=== PATIENT | female | born 2000 | race Caucasian/White ===

== ENCOUNTER 2020-07-31 21:00 | Emergency (ER) | payer MEDICAID ==
--- NOTE | 2020-07-31 21:06 | EDM.PDOC ---
ED HPI GENERAL MEDICAL PROBLEM - General Chief Complaint: Back Pain or Injury Stated Complaint: BACK PAIN Time Seen by Provider: 07/31/20 21:02 Source of Information: Reports: Patient History Limitations: Reports: No Limitations - History of Present Illness INITIAL COMMENTS - FREE TEXT/NARRATIVE: HISTORY AND PHYSICAL: History of present illness: Patient is a 20-year-old female who presents to the emergency room with complaints of right low back pain. This pain started approximately 1 week ago which is progressively gotten worse. She states she has increased anxiety and was concerned to come to the hospital due to this. She was told by her aunt that she could have a bladder infection although she does not have any frequency, dysuria or hematuria. She also denies any concern for or STIs. She reports that the pain is constant and does not radiate. She denies any injury, trauma or falls. She is fully ambulatory into the emergency room and is able to move freely without any difficulty or deficits. She denies any numbness, tingling, saddle paresthesia or weakness of her distal extremities. She denies any urinary or fecal incontinence. Patient denies any fever, chills, headache, change in vision, syncope or near syncope. Denies any chest pain, shortness of breath or cough. Denies any abdominal pain, nausea, vomiting, diarrhea, or constipation. Has not noted any blood in urine or stool. Patient has been eating and drinking appropriately. Review of systems: As per history of present illness and below otherwise all systems reviewed and negative. Past medical history: As per history of present illness and as reviewed below otherwise noncontributory. Surgical history: As per history of present illness and as reviewed below otherwise non contributory. Social history: See social history for further information Family history: As per history of present illness and as reviewed below otherwise noncontributory. Physical exam: General: Well developed and well nourished. Alert and orientated x 3. Nontoxic in appearance and in no acute distress. Vital signs are stable and have been reviewed by me. Nursing notes were reviewed. HEENT: Atraumatic, normocephalic, pupils equal and reactive bilaterally, negative for conjunctival pallor or scleral icterus, mucous membranes moist, TMs normal bilaterally, throat clear, neck supple, nontender, trachea midline. No drooling or trismus noted. No meningeal signs. No hot potato voice noted. Lungs: Clear to auscultation bilaterally. No wheezes, rales, or rhonchi. Chest nontender. Normal work of breathing, no accessory muscles used. Heart: S1S2, regular rate and rhythm without overt murmur, gallops, or rubs. No JVD. No peripheral edema Abdomen: Soft, nondistended, nontender. Normoactive bowel sounds. Negative for masses or costovertebral tenderness. Pelvis: Stable nontender. C-spine/Back: No pinpoint vertebral tenderness upon palpation. No crepitus, step-offs or obvious deformities. Patient is ambulatory into the emergency room without difficulty or deficit. Muscular tenderness to the right lower lumbar region. No bony tenderness. Able to rock back on heels and walk on toes. Denies any urinary or fecal incontinence. Denies any numbness, tingling or saddle paresthesia. No concerns of serious infection, fracture or cord compression, or cauda equina syndrome. Deep tendon reflexes brisk bilaterally. Skin: Intact, warm, dry. No lesions or rashes noted. Hematologic: No petechiae or purpra. Mucosa appropriate color and normal nail bed color and refill. Extremities: Atraumatic, moves all extremities per self without difficulty or deficits, negative for cords or calf pain. Neurovascular unremarkable. Neuro: Awake, alert, oriented. Cranial nerves II through XII unremarkable. Cerebellum unremarkable. Motor and sensory unremarkable throughout. Exam nonfocal. Psychiatric: Mood and affect are appropriate. Normal thought process. Answering questions appropriately. Notes: *This patient was seen and evaluated during the 2019 SARS-CoV-2 novel coronavirus pandemic period. Community viral transmission is ongoing at time of this encounter and the emergency department is operating under pandemic response procedures. After my physical exam it appears that she has more muscular involvement and does not require any imaging at this time. Urinalysis is negative. Negative . We will treat this as a muscular strain with Flexeril and diclofenac. Patient states she is up here from [place], visiting for an undetermined amount of time. She was concerned that [place] does not except [place] Medicaid, I did give her information of financial assistance that she could obtain at the administrative assistant front desk. Encouraged her to follow-up with primary care here or back in [place] if her pain continues because further imaging/diagnostics may be warranted at that time. I have talked with the patient about today's findings, in addition to providing specific details for plan of care. Reassessment at the time of disposition demonstrates that the patient is in no acute distress. The patient is stable for discharge, counseling was provided and we discussed in great detail signs and symptoms that would prompt them to return to the Emergency Department. Medication, follow up and supportive care measures were reviewed and discussed. Voices understanding and is agreeable to plan of care. Denies any further questions or concerns at this time. Diagnostics: UA, hCG you Therapeutics: Flexeril, diclofenac Prescription: Flexeril Impression: Muscular back strain Plan: 1. The medication you received today does cause drowsiness, so do not drive for the remaining day 2. When resting please lay on a flat firm surface. Limit your immobility to prevent muscle stiffness. Get up to ambulate/move around/gentle stretching multiple times throughout the day. May alternate heat and ice to the painful areas 3. Tylenol and Ibuprofen as needed for back pain. Flexeril as a muscle relaxant, this medication may cause drowsiness a do not take it will driving her needing to be functioning outside of the house. Please take Ibuprofen with food routinely as this will help with the back pain. 4. Please follow-up with your primary care provider as we discussed. If your symptoms should worsen, new symptoms develop or any of the signs and symptoms we discussed should arise please return to the emergency room or call 911 (if needed). Definitive disposition and diagnosis as appropriate pending reevaluation and review of above. lower back Pain Score (Numeric/FACES): 5 - Related Data Allergies Allergy/AdvReac Type Severity Reaction Status Date / Time acetaminophen Allergy Itching Verified 07/31/20 21:22 [From Tylenol-Codeine #3] codeine Allergy Itching Verified 07/31/20 21:22 [From Tylenol-Codeine #3] Home Meds: Home Meds . [No Known Home Meds] 07/31/20 [History] ED ROS GENERAL - Review of Systems Review Of Systems: Comprehensive ROS is negative, except as noted in HPI. ED EXAM,LOWER BACK PAIN/INJURY - Physical Exam Exam: See Below (See dictation) Course - Vital Signs Last Recorded V/S: Last Vital Signs Temp 96.2 F L 07/31/20 21:18 Pulse 70 07/31/20 21:18 Resp 16 07/31/20 21:18 BP 146/85 H 07/31/20 21:18 Pulse Ox 99 07/31/20 21:18 - Orders/Labs/Meds Labs: Laboratory Tests 07/31/20 07/31/20 Range/Units 21:20 21:20 Urine Color YELLOW Urine Appearance CLEAR Urine pH 6.0 (5.0-8.0) Ur Specific [place] 1.025 (1.001-1.035) Urine Protein NEGATIVE (NEGATIVE) mg/dL Urine Glucose (UA) NEGATIVE (NEGATIVE) mg/dL Urine Ketones NEGATIVE (NEGATIVE) mg/dL Urine Occult Blood NEGATIVE (NEGATIVE) Urine Nitrite NEGATIVE (NEGATIVE) Urine Bilirubin NEGATIVE (NEGATIVE) Urine Urobilinogen 0.2 (<2.0) EU/dL Ur Leukocyte Esterase NEGATIVE (NEGATIVE) Urine HCG, Qual NEGATIVE (NEGATIVE) Meds: Medications Discontinued Medications Generic Name Dose Route Start Last Admin Trade Name Freq PRN Reason Stop Dose Admin Cyclobenzaprine HCl 10 mg 07/31/20 21:30 Flexeril PO 07/31/20 21:31 ONETIME ONE Diclofenac Sodium 75 mg 07/31/20 21:30 Voltaren PO 07/31/20 21:31 ONETIME ONE Departure - Departure Time of Disposition: 21:39 Disposition: Home, Self-Care 01 Clinical Impression: Muscle strain - Discharge Information Instructions: Muscle Strain, [id number] Referrals: PCP,None [Primary Care Provider] - Forms: ED Department Discharge Additional Instructions: The following information is given to patients seen in the emergency department who are being discharged to home. This information is to outline your options for follow-up care. We provide all patients seen in our emergency department with a follow-up referral. The need for follow-up, as well as the timing and circumstances, are variable depending upon the specifics of your emergency department visit. If you don't have a primary care physician on staff, we will provide you with a referral. We always advise you to contact your personal physician following an emergency department visit to inform them of the circumstance of the visit and for follow-up with them and/or the need for any referrals to a consulting specialist. The emergency department will also refer you to a specialist when appropriate. This referral assures that you have the opportunity for follow-up care with a specialist. All of these measure are taken in an effort to provide you with optimal care, which includes your follow-up. Under all circumstances we always encourage you to contact your private physician who remains a resource for coordinating your care. When calling for follow-up care, please make the office aware that this follow-up is from your recent emergency room visit. If for any reason you are refused follow-up, please contact the [facility] Emergency Department at and asked to speak to the emergency department charge nurse. [facility] [address] [place] [address] [id number] [facility] [address] [place] [id number] Thank you for choosing the [facility] emergency department in [place] for your medical needs today. It was a pleasure caring for you. Today you were seen in the emergency department for back pain. 1. The medication you received today does cause drowsiness, so do not drive for the remaining day 2. When resting please lay on a flat firm surface. Limit your immobility to prevent muscle stiffness. Get up to ambulate/move around/gentle stretching multiple times throughout the day. May alternate heat and ice to the painful areas 3. Tylenol and Ibuprofen as needed for back pain. Flexeril as a muscle relaxant, this medication may cause drowsiness a do not take it will driving her needing to be functioning outside of the house. Please take Ibuprofen with food routinely as this will help with the back pain. 4. Please follow-up with your primary care provider as we discussed. If your symptoms should worsen, new symptoms develop or any of the signs and symptoms we discussed should arise please return to the emergency room or call 911 (if ne eded). Sepsis Event Note (ED) - Focused Exam Vital Signs: Vital Signs Temp Pulse Resp BP Pulse Ox 07/31/20 21:18 96.2 F L 70 16 146/85 H 99
[2020-07-31] MEDS ORDERED: Diclofenac Sodium 75 MG Tab.EC PO ONE (21:30)
[2020-07-31] MEDS ORDERED: Cyclobenzaprine 10 MG Tab PO ONE (21:30)
== END 2020-07-31 21:54 | disposition home or self-care (01) ==
LOC: MW.ED 21:00
DX: S39.012A Strain of muscle, fascia and tendon of lower back, initial encounter (principal); Z88.6 Allergy status to analgesic agent; Z88.5 Allergy status to narcotic agent; X58.XXXA Exposure to other specified factors, initial encounter
CPT/HCPCS: 81003; 81025; 99283; A9270

== ENCOUNTER 2020-08-18 20:20 | Emergency (ER) | payer MEDICAID ==
--- NOTE | 2020-08-18 21:06 | EDM.PDOC ---
<Magdaleno Gallagher - Last Filed: 08/18/20 22:22> ED HPI GENERAL MEDICAL PROBLEM - General Chief Complaint: Respiratory Problem Stated Complaint: SOB Time Seen by Provider: 08/18/20 21:00 - Related Data Allergies Allergy/AdvReac Type Severity Reaction Status Date / Time acetaminophen Allergy Itching Verified 08/18/20 21:07 [From Tylenol-Codeine #3] codeine Allergy Itching Verified 08/18/20 21:07 [From Tylenol-Codeine #3] Home Meds: Home Meds Ondansetron [Zofran ODT] 4 mg PO Q6H PRN 3 Days #12 tab.dis 08/18/20 [Rx] ED ROS GENERAL - Review of Systems Review Of Systems: See Below ED EXAM, GENERAL - Physical Exam Exam: See Below Departure - Departure Time of Disposition: 22:23 Disposition: Home, Self-Care 01 Condition: Good Clinical Impression: Viral syndrome - Discharge Information *PRESCRIPTION DRUG MONITORING PROGRAM REVIEWED*: Not Applicable *COPY OF PRESCRIPTION DRUG MONITORING REPORT IN PATIENT LICHA: Not Applicable Prescriptions: Ondansetron [Zofran ODT] 4 mg PO Q6H PRN 3 Days #12 tab.dis PRN Reason: Nausea Instructions: Viral Illness, Adult Referrals: [facility] [Outside] Forms: ED Department Discharge Additional Instructions: Your chest x-ray today was normal it did not show bacterial pneumonia. Your blood work was also normal. Your coronavirus and flu swabs were negative tonight. Indicating that you do not have coronavirus of the flu. It is possible that you were too early in your course for your coronavirus test to be positive. However I think it is more likely that you have a different upper respiratory viral infection. I have sent a prescription for Zofran to the pharmacy that you can cook pickled meat tomorrow this will help with your nausea. If you develop severe abdominal pain vomiting despite the Zofran or any other new or worsening symptoms that concern you please follow-up with your doctor or return to the ER. If you are still feeling very poorly 5 to 7 days from now it would be prudent to get retested for coronavirus. If you do not have a primary care provider you can follow-up with the [facility]. The following information is given to patients seen in the emergency department who are being discharged to home. This information is to outline your options for follow-up care. We provide all patients seen in our emergency department with a follow-up referral. The need for follow-up, as well as the timing and circumstances, are variable depending upon the specifics of your emergency department visit. If you don't have a primary care physician on staff, we will provide you with a referral. We always advise you to contact your personal physician following an emergency department visit to inform them of the circumstance of the visit and for follow-up with them and/or the need for any referrals to a consulting specialist. The emergency department will also refer you to a specialist when appropriate. This referral assures that you have the opportunity for follow-up care with a specialist. All of these measure are taken in an effort to provide you with optimal care, which includes your follow-up. Under all circumstances we always encourage you to contact your private physician who remains a resource for coordinating your care. When calling for follow-up care, please make the office aware that this follow-up is from your recent emergency room visit. If for any reason you are refused follow-up, please contact the [facility] Emergency Department at and asked to speak to the emergency department charge nurse. - Assessment/Plan Plan: I received signout on this patient from the nurse practitioner at [id number]. Her labs have not returned they demonstrate an unremarkable CMP and a normal white blood cell count. Her Covid and flu swabs are negative. Chest x-ray is clear. It is possible that she is simply too early in her course for the Covid to be positive. However, I think it is more likely that she has a non-Covid viral syndrome. Patient is nauseous with p.o. intake but is not vomiting. We discu ssed that if it is a far-[id number] viral syndrome she should start to feel better in the next 4 to 5 days. However, if her breathing worsens or she feels worse 5 to 7 days from now that she should be retested. Patient expressed understanding of all of this. <Issa Martin E - Last Filed: 08/19/20 10:32> ED HPI GENERAL MEDICAL PROBLEM - General Source of Information: Reports: Patient History Limitations: Reports: No Limitations - History of Present Illness INITIAL COMMENTS - FREE TEXT/NARRATIVE: HISTORY AND PHYSICAL: History of present illness: Patient is a 20-year-old female who presents to the emergency room with a 2-day history of headache, generalized body aches, dry cough and sensation of shortness of breath. Patient states she has not eaten or drank much as anytime she has consumed food or water she becomes nauseated. Patient denies any fever, chills, headache, change in vision, syncope or near syncope. Denies any chest pain, back pain, or hemoptysis. Denies any abdominal pain, vomiting, diarrhea, constipation or dysuria. Has not noted any blood in urine or stool. She has no concern for . Patient has been eating and drinking appropriately. No personal history of influenza or COVID-19 this season. Has not been around anyone who's been ill. No recent travel. Review of systems: As per history of present illness and below otherwise all systems reviewed and negative. Past medical history: As per history of present illness and as reviewed below otherwise noncontributory. Surgical history: As per history of present illness and as reviewed below otherwise noncontributory. Social history: See social history for further information Family history: As per history of present illness and as reviewed below otherwise noncontributory. Physical exam: General: Well developed and well nourished. Alert and orientated x 3. Nontoxic in appearance and in no acute distress. Vital signs are stable and have been reviewed by me. Nursing notes were reviewed. HEENT: Atraumatic, normocephalic, pupils equal and reactive bilaterally, negative for conjunctival pallor or scleral icterus, mucous membranes moist, TMs normal bilaterally, throat clear, neck supple, nontender, trachea midline. No drooling or trismus noted. No meningeal signs. No hot potato voice noted. Lungs: Clear to auscultation bilaterally. No wheezes, rales, or rhonchi. Chest nontender. Normal work of breathing, no accessory muscles used. Heart: S1S2, tachycardia, regular rhythm without overt murmur, gallops, or rubs. No JVD. No peripheral edema Abdomen: Soft, nondistended, nontender. Normoactive bowel sounds. Negative for masses or costovertebral tenderness. Skin: Intact, warm, dry. No lesions or rashes noted. Hematologic: No petechiae or purpra. Mucosa appropriate color and normal nail bed color and refill. Extremities: Atraumatic, moves all extremities per self without difficulty or deficits, negative for cords or calf pain. Neurovascular unremarkable. Neuro: Awake, alert, oriented. Cranial nerves II through XII unremarkable. Cerebellum unremarkable. Motor and sensory unremarkable throughout. Exam nonfocal. Psychiatric: Mood and affect are appropriate. Normal thought process. Answering questions appropriately. Notes: *This patient was seen and evaluated during the 2019 SARS-CoV-2 novel coronavirus pandemic period. Community viral transmission is ongoing at time of this encounter and the emergency department is operating under pandemic response procedures. Dr Gallagher will assume care of patient at 2200. Awaiting diagnostics. Patient is stable and will likely be discharged to home. Elliott will disposition ubaldo ropriately. Diagnostics: CBC, CMP, UA, CXR, COVID/Influenza Therapeutics: IV fluids, Zofran, Toradol Impression: Viral Syndrome Definitive disposition and diagnosis as appropriate pending reevaluation and review of above. head Pain Score (Numeric/FACES): 8 Past Medical History Psychiatric History: Reports: Anxiety - Infectious Disease History Infectious Disease History: Reports: None - Past Surgical History HEENT Surgical History: Reports: Tonsillectomy GI Surgical History: Reports: Appendectomy Social & Family History - Family History Family Medical History: No Pertinent Family History - Caffeine Use Caffeine Use: Reports: None Course - Vital Signs Last Recorded V/S: Last Vital Signs Temp 98.7 F 08/18/20 21:04 Pulse 100 08/18/20 23:12 Resp 20 08/18/20 23:12 BP 151/87 H 08/18/20 23:12 Pulse Ox 94 L 08/18/20 23:12 - Orders/Labs/Meds Labs: Laboratory Tests 08/18/20 08/18/20 08/18/20 Range/Units 21:09 21:22 21:22 WBC 10.50 (4.0-11.0) K/uL RBC 5.39 (4.30-5.90) M/uL Hgb 13.7 (12.0-16.0) g/dL Hct 43.5 (36.0-46.0) % MCV 80.7 (80.0-98.0) fL MCH 25.4 L (27.0-32.0) pg MCHC 31.5 (31.0-37.0) g/dL RDW Std Deviation 43.8 (28.0-62.0) fl RDW Coeff of Maura 15 (11.0-15.0) % Plt Count 380 (150-400) K/uL MPV 10.30 (7.40-12.00) fL Neut % (Auto) 68.7 (48.0-80.0) % Lymph % (Auto) 21.8 (16.0-40.0) % [place] % (Auto) 7.8 (0.0-15.0) % Eos % (Auto) 1.2 (0.0-7.0) % Baso % (Auto) 0.5 (0.0-1.5) % Neut # (Auto) 7.2 H (1.4-5.7) K/uL Lymph # (Auto) 2.3 (0.6-2.4) K/uL [place] # (Auto) 0.8 (0.0-0.8) K/uL Eos # (Auto) 0.1 (0.0-0.7) K/uL Baso # (Auto) 0.1 (0.0-0.1) K/uL Nucleated RBC % 0.0 /100WBC Nucleated RBCs # 0 K/uL Sodium 140 (136-145) mmol/L Potassium 3.7 (3.5-5.1) mmol/L Chloride 103 (98-107) mmol/L Carbon Dioxide 25.2 (21.0-32.0) mmol/L BUN 11 (7.0-18.0) mg/dL Creatinine 1.0 (0.6-1.0) mg/dL Est Cr Clr Drug Dosing 89.77 mL/min Estimated GFR (MDRD) > 60.0 ml/min Glucose 115 H (74-106) mg/dL Calcium 8.9 (8.5-10.1) mg/dL Total Bilirubin 0.3 (0.2-1.0) mg/dL AST 12 L (15-37) IU/L ALT 29 (14-63) IU/L Alkaline Phosphatase 138 H (46-116) U/L Total Protein 7.9 (6.4-8.2) g/dL Albumin 3.6 (3.4-5.0) g/dL Globulin 4.3 H (2.6-4.0) g/dL Albumin/Globulin Ratio 0.8 L (0.9-1.6) Influenza Type A RNA NEGATIVE (NEGATIVE) Influenza Type B RNA NEGATIVE (NEGATIVE) SARS-CoV-2 RNA (ODALYS) NEGATIVE (NEGATIVE) Meds: Medications Discontinued Medications Generic Name Dose Route Start Last Admin Trade Name Freq PRN Reason Stop Dose Admin Sodium Chloride 1,000 mls @ 999 mls/hr 08/18/20 21:12 08/18/20 21:47 Normal Saline IV 08/18/20 22:12 999 mls/hr STAT ONE Administration Ketorolac Tromethamine 30 mg 08/18/20 21:12 08/18/20 21:47 Toradol IVPUSH 08/18/20 21:13 30 mg ONETIME ONE Administration Ondansetron HCl 4 mg 08/18/20 21:12 08/18/20 21:47 Zofran IVPUSH 08/18/20 21:13 4 mg ONETIME ONE Administration Sepsis Event Note (ED) - Focused Exam Vital Signs: Vital Signs Pulse Resp BP Pulse Ox 08/18/20 23:12 100 20 151/87 H 94 L
[2020-08-18] MEDS ORDERED: Ondansetron 4 MG/2 ML SDV IVPUSH ONE (21:12)
[2020-08-18] MEDS ORDERED: Ketorolac 30 MG/ML SDV IVPUSH ONE (21:12)
[2020-08-18] MEDS ORDERED: Sodium Chloride 0.9% 1,000 ML IV ONE (21:12)
[2020-08-18 21:49] LABS: BLOOD UREA NITROGEN,BUN 11 mg/dL (7.0-18.0); CARBON DIOXIDE,CO2 25.2 mmol/L (21.0-32.0); CHLORIDE,CL 103 mmol/L (98-107); GLUCOSE RANDOM 115 mg/dL (74-106); POTASSIUM,K 3.7 mmol/L (3.5-5.1); SODIUM,NA 140 mmol/L (136-145)
[2020-08-18 22:05] LABS: CORONAVIRUS COVID-19 NAA NEGATIVE (NEGATIVE); INFLUENZA A NAA NEGATIVE (NEGATIVE); INFLUENZA B NAA NEGATIVE (NEGATIVE)
--- NOTE | 2020-08-18 22:05 | CR ---
Indication: Shortness of breath Technique: Chest 1 view Comparison: None Findings/Impression: Cardiovascular and mediastinum: Heart size and vasculature are normal in caliber and appearance. Lungs and pleural space: Low lung volumes without pleural effusion or pneumothorax. No focal consolidation. Bones and soft tissues: No acute findings. Dictated by Jericho Costa MD @ Aug 18 2020 10:04PM Signed by Dr. Jericho Costa @ Aug 18 2020 10:05PM
== END 2020-08-18 23:12 | disposition home or self-care (01) ==
LOC: MW.ED 20:20
DX: B34.9 Viral infection, unspecified (principal); Z88.5 Allergy status to narcotic agent; Z20.822 Contact with and (suspected) exposure to COVID-19
CPT/HCPCS: 0240U; 36415; 71045; 80053; 85025; 96374; 96375; 99285; J1885; J2405; J7030; 99283

== ENCOUNTER 2020-08-23 18:43 | Observation (INO) | payer MEDICAID ==
[2020-08-23] MEDS ORDERED: Sodium Chloride 0.9% 1,000 ML IV SCH (19:15)
--- NOTE | 2020-08-23 19:59 | PCM.EKG ---
#1 Interpretation EKG Date: 08/23/20 Time: 19:35 Rhythm: NSR Rate (Beats/Min): 130 Parker: Normal P-Wave: Present QRS: Normal ST-T: Normal QT: Normal Comparison: NA - No Prior EKG (Sinus Tachycardia)
[2020-08-23 20:06] LABS: BLOOD UREA NITROGEN,BUN 7 mg/dL (7.0-18.0); CARBON DIOXIDE,CO2 22.7 mmol/L (21.0-32.0); CHLORIDE,CL 102 mmol/L (98-107); GLUCOSE RANDOM 95 mg/dL (74-106); LIPASE 77 U/L (73-393); SODIUM,NA 139 mmol/L (136-145)
[2020-08-23 20:15] LABS: CORONAVIRUS COVID-19 NAA NEGATIVE (NEGATIVE); INFLUENZA A NAA NEGATIVE (NEGATIVE); INFLUENZA B NAA NEGATIVE (NEGATIVE)
[2020-08-23] MEDS ORDERED: Ondansetron 4 MG/2 ML SDV IVPUSH ONE (21:11)
[2020-08-23] MEDS ORDERED: Ketorolac 15 MG/ML SDV IM ONE (21:11)
[2020-08-23] MEDS ORDERED: Ketorolac 15 MG/ML SDV IVPUSH STA (21:13)
[2020-08-23] MEDS ORDERED: Lactated Ringers 1,000 ML IV SCH (21:15)
--- NOTE | 2020-08-23 22:08 | CR ---
Indication: Shortness of breath Technique: Chest 1 view Comparison: August 18, 2020 Findings/Impression: Cardiovascular and mediastinum: Heart size and vasculature are normal in caliber and appearance. Mediastinum is within normal limits. Lungs and pleural space: Lungs are clear. No sign of infiltrate or mass. No sign of pleural effusion. No pneumothorax. Bones and soft tissues: No significant findings. Dictated by Arlette Keen MD @ Aug 23 2020 10:04PM Signed by Dr. Arlette Keen @ Aug 23 2020 10:06PM
[2020-08-23] MEDS ORDERED: Iopamidol 755 MG/ML 500 ML Multipack Bottle IVPUSH STA (23:39)
--- NOTE | 2020-08-23 23:58 | CT ---
INDICATION: Feeling ill, shortness of breath and tachycardia. TECHNIQUE: CT chest PE was acquired with 100 cc Isovue 370 intravenous contrast. COMPARISON: Chest x-ray 08/23/2020 FINDINGS: Heart and vasculature: Sensitivity is mildly reduced secondary to respiratory motion on the exam. Considering this, no definite filling defects within the pulmonary artery. No pericardial effusion. Thoracic aorta normal in contour. Lungs and pleural: No pleural effusion or pneumothorax. Some respiratory motion, however there is a diffuse ground-glass process involving both lungs, especially at the lung bases. Lymph nodes/mediastinum: Right hilar lymph nodes measure up to 14 millimeters in short axis. Other subcentimeter mediastinal lymph nodes. Chest wall: No masses. Upper abdomen: Normal. Bones: Unremarkable for age. IMPRESSION: 1. Mildly limited examination secondary to respiratory motion without definite evidence of pulmonary embolus. 2. Diffuse ground-glass process involving both lungs, greatest at the lung bases. Differential diagnosis includes a pneumonitis or viral pneumonia. Please note that all CT scans at this facility use dose modulation, iterative reconstruction, and/or weight-based dosing when appropriate to reduce radiation dose to as low as reasonably achievable. Dictated by Jericho Costa MD @ Aug 23 2020 11:48PM Signed by Dr. Jericho Costa @ Aug 23 2020 11:57PM
[2020-08-24] MEDS ORDERED: Enoxaparin 40 MG/0.4 ML Syringe SUBCUT SCH (01:38)
[2020-08-24] MEDS ORDERED: Ketorolac 30 MG/ML SDV IVPUSH PRN (01:39)
[2020-08-24] MEDS ORDERED: Ondansetron 4 MG/2 ML SDV IVPUSH PRN (01:39)
[2020-08-24] MEDS: Albuterol/Ipratropium 3.0-0.5 MG/3 ML Neb Soln NEB PRN (02:05)
[2020-08-24] MEDS: Lactated Ringers 1,000 ML IV SCH ×3 (02:09→19:48)
[2020-08-24 05:55] LABS: BLOOD UREA NITROGEN,BUN 8 mg/dL (7.0-18.0); CARBON DIOXIDE,CO2 25.1 mmol/L (21.0-32.0); CHLORIDE,CL 104 mmol/L (98-107); GLUCOSE RANDOM 102 mg/dL (74-106); POTASSIUM,K 3.7 mmol/L (3.5-5.1); SODIUM,NA 139 mmol/L (136-145)
--- NOTE | 2020-08-24 06:39 | EDM.PDOC ---
ED HPI GENERAL MEDICAL PROBLEM - General Chief Complaint: Respiratory Problem Stated Complaint: SHORTNESS OF BREATH Time Seen by Provider: 08/23/20 18:57 - History of Present Illness INITIAL COMMENTS - FREE TEXT/NARRATIVE: CHIEF COMPLAINT(S): Shortness of breath HISTORY OF PRESENT ILLNESS: This is a 20-year-old woman without any significant past medical history who comes to the emergency department with a chief complaint of shortness of breath. The patient states that she was seen approximately 5 days ago and was diagnosed with a virus. She states that since that time she has been experiencing shortness of breath and chest pain when she takes a deep breath. She feels fine one day then not so well the next day. She denies any cough but states she has some congestions. She states that the chest pain is sharp rated 0/10 currently which is intermittent and exacerbated by taking deep breaths. She denies any hemoptysis. She states that she does have a mild headache which is diffuse in nature not associated with any numbness, tingling, weakness. She denies any light sensitivity or photosensitivity. She states that her roommate is sick. She states that she tried Tylenol at home for everything but it did not work. She denies any other symptoms. REVIEW OF SYSTEMS: Constitutional: Positive for fever Eyes: Denies eye pain Ears, Nose, Mouth, & Throat: Positive for runny nose Cardiovascular: Positive for chest pain Respiratory: Positive for shortness of breath. Denies cough Gastrointestinal: Denies Nausea, vomiting, diarrhea, hematochezia. Genitourinary: Denies hematuria Skin:Denies a rash MSK: Denies joint pain Neurological: Positive for headache. Denies blurred vision, numbness, tingling, weakness Psychiatric: Denies depression PAST MEDICAL HISTORY: As per history of present illness and as reviewed below otherwise noncontributory. SURGICAL HISTORY: As per history of present illness and as reviewed below otherwise noncontributory. SOCIAL HISTORY: As per history of present illness and as reviewed below otherwise noncontributory. FAMILY HISTORY: As per history of present illness and as reviewed below otherwise noncontributory. EXAMINATION OF ORGAN SYSTEMS/BODY AREAS: Constitutional: Blood pressure is 135/65. Heart rate is 125, respiratory rate 18 with an oxygen saturation 98% on room air. Temperature 37.2 General: Overall well-appearing woman who is in no acute distress Psychiatric: Appropriate mood and affect Eyes: No scleral icterus or conjunctival erythema ENMT: Moist mucous membranes. No pharyngeal erythema Cardiovascular: Tachycardic but regular. No rubs. No gallops, murmurs, or rubs. Bilateral upper extremity pulses symmetric and intact. No peripheral edema. No JVD. Respiratory: Lungs clear to auscultation bilaterally.No wheezes, rales, or rhonchi. Gastrointestinal: Soft, non-tender, non-distended.Normoactive bowel sounds Genitourinary: No suprapubic tenderness Musculoskeletal: Normal range of motion. Skin: No lesions or abrasions. Neurological: Alert, GCS 15 Strength and sensation intact. MEDICAL DECISION MAKING AND COURSE IN THE ED WITH INTERPRETATION/REVIEW OF DIAGNOSTIC STUDIES: This is a 20 year old woman without any significant PMH who presentings with viral syndrome who is tachycardic. At this time I do not believe a repeat chest x-ray is indicated. We will obtain repeat Covid swabs and influenza swabs. Will obtain an EKG given the tachycardia. Will observe the patient for improvement. We will provide the patient with 1 L of normal saline given the tachycardia. I will provide the patient with Toradol and Zofran. Laboratory: Covid and influenza are negative. Time: 1934 Twelve-lead EKG interpreted by myself. Sinus tachycardia at a rate of 130 beats per minute. Normal axis. NM interval is 151ms. QRS duration is 78ms. ST segments are [normal without elevations or depressions. No T wave inversions No Q waves present. Hypertrophy not noted. No prior EKG Interpretation: Sinus tachycardia On reevaluation the patient continued to remain tachycardic at 130. EKG revealed sinus tachycardia without any obvious abnormality. Given this we will obtain a further work-up including CBC, D-dimer given the shortness of breath and tachycardia, CMP, troponin, urinalysis and UDS. Will obtain a test. We will provide the patient with additional liter bolus. We will obtain uA and UDS Labs: CBC reveals eleaveted WBC at 13.94 with neutophilic prodom. D dimer is negative. Lactate 1.6. CMP is unremarkable. Lipase negative. TSH and T4 are normal. HCG negative. Urinalysis is negative. UDS negative. Troponin negative. The radiological images were viewed by myself along with reading the report from the radiologist. Chest x-ray does not reveal any acute cardiopulmonary process. On reevaluation, the patient continued to remain tachycardic. Therefore given the shortness of breath and tachycardia even though the D-dimer is negative we will obtain a CT angio to evaluate for PE. The radiological images were viewed by myself along with reading the report from the radiologist. CT angio does not reveal any evidence of pulmonary embolus. There is diffuse groundglass in both lungs at the lung bases. On reevaluation, the patient remained tachycardic at 130. I did have a discussion with her at this time that I would like to admit her for observation given the persistent tachycardia. I discussed her results with her. She was amenable to this plan. Therefore I contacted Dr. Simpson and she accepted the admission. DISPOSITION: The patient was admitted to the hospital in stable condition CONDITION: Fair PROCEDURES: None FINAL IMPRESSION(S)/DIAGNOSES: 1. Acute persistent tachycardia 2. Acute viral pneumonia Alberto Moses M.D. - Related Data Allergies Allergy/AdvReac Type Severity Reaction Status Date / Time codeine Allergy Itching Verified 08/24/20 03:30 [From Tylenol-Codeine #3] Home Meds: Home Meds . [No Known Home Meds] 08/23/20 [History] Past Medical History Psychiatric History: Reports: Anxiety - Infectious Disease History Infectious Disease History: Reports: Shingles - Past Surgical History HEENT Surgical History: Reports: Tonsillectomy GI Surgical History: Reports: Appendectomy Social & Family History - Family History Family Medical History: No Pertinent Family History - Tobacco Use Tobacco Use Status *Q: Never Tobacco User - Caffeine Use Caffeine Use: Reports: Soda - Recreational Drug Use Recreational Drug Use: No ED ROS GENERAL - Review of Systems Review Of Systems: See Below ED EXAM, GENERAL - Physical Exam Exam: See Below Course - Vital Signs Last Recorded V/S: Last Vital Signs Temp 36.8 C 08/24/20 04:00 Pulse 116 H 08/24/20 04:00 Resp 19 08/24/20 04:00 BP 125/62 08/24/20 04:00 Pulse Ox 97 08/24/20 04:00 - Orders/Labs/Meds Orders: Active Orders 24 hr Category Date Time Status Lactated Ringers [Ringers, Lactated] 1,000 ml Med 08/23/20 21:15 Active IV ASDIRECTED Sodium Chloride 0.9% [Normal Saline] 1,000 ml Med 08/23/20 19:15 Active IV ASDIRECTED Medication Orders Albuterol/Ipratropium (Duoneb 3.0-0.5 Mg/3 Ml) 3 ml NEB Q4HRRT PRN PRN Reason: Shortness of Breath Last Admin: 08/24/20 02:05 Dose: 3 ml Documented by: OSMAR Enoxaparin Sodium (Lovenox) 40 mg SUBCUT Q12HR MAGGIE Last Admin: 08/24/20 02:06 Dose: 40 mg Documented by: SOMAR Sodium Chloride (Normal Saline) 1,000 mls @ 999 mls/hr IV ASDIRECTED [facility] Last Admin: 08/23/20 20:01 Dose: 999 mls/hr Documented by: LESLIE Lactated Ringer's (Ringers, Lactated) 1,000 mls @ 999 mls/hr IV ASDIRECTED [facility] Last Admin: 08/23/20 21:23 Dose: 999 mls/hr Documented by: LESLIE Lactated Ringer's (Ringers, Lactated) 1,000 mls @ 125 mls/hr IV ASDIRECTED [facility] Last Admin: 08/24/20 02:09 Dose: 125 mls/hr Documented by: OSMAR Ketorolac Tromethamine (Toradol) 30 mg IVPUSH Q6H PRN PRN Reason: Pain Stop: 08/29/20 01:39 Ondansetron HCl (Zofran) 4 mg IVPUSH Q4H PRN PRN Reason: Nausea/Vomiting Labs: Laboratory Tests 08/23/20 08/23/20 08/23/20 Range/Units 19:25 19:25 19:25 WBC (4.0-11.0) K/uL RBC (4.30-5.90) M/uL Hgb (12.0-16.0) g/dL Hct (36.0-46.0) % MCV (80.0-98.0) fL MCH (27.0-32.0) pg MCHC (31.0-37.0) g/dL RDW Std Deviation (28.0-62.0) fl RDW Coeff of Maura (11.0-15.0) % Plt Count (150-400) K/uL MPV (7.40-12.00) fL Neut % (Auto) (48.0-80.0) % Lymph % (Auto) (16.0-40.0) % Parmer % (Auto) (0.0-15.0) % Eos % (Auto) (0.0-7.0) % Baso % (Auto) (0.0-1.5) % Neut # (Auto) (1.4-5.7) K/uL Lymph # (Auto) (0.6-2.4) K/uL Parmer # (Auto) (0.0-0.8) K/uL Eos # (Auto) (0.0-0.7) K/uL Baso # (Auto) (0.0-0.1) K/uL Nucleated RBC % /100WBC Nucleated RBCs # K/uL ESR (0-19) mm/hr D-Dimer, Quantitative 0.26 (0.0-0.50) mg/L FEU Lactate (0.20-2.00) mmol/L Sodium 139 (136-145) mmol/L Potassium 4.0 (3.5-5.1) mmol/L Chloride 102 (98-107) mmol/L Carbon Dioxide 22.7 (21.0-32.0) mmol/L BUN 7 (7.0-18.0) mg/dL Creatinine 0.9 (0.6-1.0) mg/dL Est Cr Clr Drug Dosing 99.74 mL/min Estimated GFR (MDRD) > 60.0 ml/min Glucose 95 (74-106) mg/dL Calcium 9.2 (8.5-10.1) mg/dL Total Bilirubin 0.5 (0.2-1.0) mg/dL AST 21 (15-37) IU/L ALT 33 (14-63) IU/L Alkaline Phosphatase 133 H (46-116) U/L Troponin I (0.000-0.056) ng/mL Total Protein 8.4 H (6.4-8.2) g/dL Albumin 3.8 (3.4-5.0) g/dL Globulin 4.6 H (2.6-4.0) g/dL Albumin/Globulin Ratio 0.8 L (0.9-1.6) Lipase 77 (73-393) U/L Free T4 (0.76-1.46) ng/dL TSH 3rd Generation (0.36-3.74) uIU/mL HCG, Qual (NEG) Urine Color Urine Appearance Urine pH (5.0-8.0) Ur Specific [place] (1.001-1.035) Urine Protein (NEGATIVE) mg/dL Urine Glucose (UA) (NEGATIVE) mg/dL Urine Ketones (NEGATIVE) mg/dL Urine Occult Blood (NEGATIVE) Urine Nitrite (NEGATIVE) Urine Bilirubin (NEGATIVE) Urine Urobilinogen (<2.0) EU/dL Ur Leukocyte Esterase (NEGATIVE) Urine Opiates Screen (NEGATIVE) Ur Oxycodone Screen (NEGATIVE) Urine Methadone Screen (NEGATIVE) Ur Barbiturates Screen (NEGATIVE) Ur Phencyclidine Scrn (NEGATIVE) Ur Amphetamine Screen (NEGATIVE) U Methamphetamines Scrn (NEGATIVE) U Benzodiazepines Scrn (NEGATIVE) U Cocaine Metab Screen (NEGATIVE) U Marijuana (THC) Screen (NEGATIVE) Influenza Type A RNA NEGATIVE (NEGATIVE) Influenza Type B RNA NEGATIVE (NEGATIVE) SARS-CoV-2 RNA (ODALYS) NEGATIVE (NEGATIVE) 08/23/20 08/23/20 08/23/20 Range/Units 19:25 19:25 19:25 WBC 13.94 H (4.0-11.0) K/uL RBC 5.81 (4.30-5.90) M/uL Hgb 14.7 (12.0-16.0) g/dL Hct 46.8 H (36.0-46.0) % MCV 80.6 (80.0-98.0) fL MCH 25.3 L (27.0-32.0) pg MCHC 31.4 (31.0-37.0) g/dL RDW Std Deviation 43.2 (28.0-62.0) fl RDW Coeff of Maura 15 (11.0-15.0) % Plt Count 417 H (150-400) K/uL MPV 11.00 (7.40-12.00) fL Neut % (Auto) 76.8 (48.0-80.0) % Lymph % (Auto) 15.8 L (16.0-40.0) % Parmer % (Auto) 6.6 (0.0-15.0) % Eos % (Auto) 0.6 (0.0-7.0) % Baso % (Auto) 0.2 (0.0-1.5) % Neut # (Auto) 10.7 H (1.4-5.7) K/uL Lymph # (Auto) 2.2 (0.6-2.4) K/uL Parmer # (Auto) 0.9 H (0.0-0.8) K/uL Eos # (Auto) 0.1 (0.0-0.7) K/uL Baso # (Auto) 0.0 (0.0-0.1) K/uL Nucleated RBC % 0.0 /100WBC Nucleated RBCs # 0 K/uL ESR (0-19) mm/hr D-Dimer, Quantitative (0.0-0.50) mg/L FEU Lactate (0.20-2.00) mmol/L Sodium (136-145) mmol/L Potassium (3.5-5.1) mmol/L Chloride (98-107) mmol/L Carbon Dioxide (21.0-32.0) mmol/L BUN (7.0-18.0) mg/dL Creatinine (0.6-1.0) mg/dL Est Cr Clr Drug Dosing mL/min Estimated GFR (MDRD) ml/min Glucose (74-106) mg/dL Calcium (8.5-10.1) mg/dL Total Bilirubin (0.2-1.0) mg/dL AST (15-37) IU/L ALT (14-63) IU/L Alkaline Phosphatase (46-116) U/L Troponin I (0.000-0.056) ng/mL Total Protein (6.4-8.2) g/dL Albumin (3.4-5.0) g/dL Globulin (2.6-4.0) g/dL Albumin/Globulin Ratio (0.9-1.6) Lipase (73-393) U/L Free T4 1.12 (0.76-1.46) ng/dL TSH 3rd Generation 0.60 (0.36-3.74) uIU/mL HCG, Qual NEGATIVE (NEG) Urine Color Urine Appearance Urine pH (5.0-8.0) Ur Specific [place] (1.001-1.035) Urine Protein (NEGATIVE) mg/dL Urine Glucose (UA) (NEGATIVE) mg/dL Urine Ketones (NEGATIVE) mg/dL Urine Occult Blood (NEGATIVE) Urine Nitrite (NEGATIVE) Urine Bilirubin (NEGATIVE) Urine Urobilinogen (<2.0) EU/dL Ur Leukocyte Esterase (NEGATIVE) Urine Opiates Screen (NEGATIVE) Ur Oxycodone Screen (NEGATIVE) Urine Methadone Screen (NEGATIVE) Ur Barbiturates Screen (NEGATIVE) Ur Phencyclidine Scrn (NEGATIVE) Ur Amphetamine Screen (NEGATIVE) U Methamphetamines Scrn (NEGATIVE) U Benzodiazepines Scrn (NEGATIVE) U Cocaine Metab Screen (NEGATIVE) U Marijuana (THC) Screen (NEGATIVE) Influenza Type A RNA (NEGATIVE) Influenza Type B RNA (NEGATIVE) SARS-CoV-2 RNA (ODALYS) (NEGATIVE) 08/23/20 08/23/20 08/23/20 Range/Units 19:25 22:08 22:08 WBC (4.0-11.0) K/uL RBC (4.30-5.90) M/uL Hgb (12.0-16.0) g/dL Hct (36.0-46.0) % MCV (80.0-98.0) fL MCH (27.0-32.0) pg MCHC (31.0-37.0) g/dL RDW Std Deviation (28.0-62.0) fl RDW Coeff of Maura (11.0-15.0) % Plt Count (150-400) K/uL MPV (7.40-12.00) fL Neut % (Auto) (48.0-80.0) % Lymph % (Auto) (16.0-40.0) % Parmer % (Auto) (0.0-15.0) % Eos % (Auto) (0.0-7.0) % Baso % (Auto) (0.0-1.5) % Neut # (Auto) (1.4-5.7) K/uL Lymph # (Auto) (0.6-2.4) K/uL Parmer # (Auto) (0.0-0.8) K/uL Eos # (Auto) (0.0-0.7) K/uL Baso # (Auto) (0.0-0.1) K/uL Nucleated RBC % /100WBC Nucleated RBCs # K/uL ESR 1 (0-19) mm/hr D-Dimer, Quantitative (0.0-0.50) mg/L FEU Lactate 1.6 (0.20-2.00) mmol/L Sodium (136-145) mmol/L Potassium (3.5-5.1) mmol/L Chloride (98-107) mmol/L Carbon Dioxide (21.0-32.0) mmol/L BUN (7.0-18.0) mg/dL Creatinine (0.6-1.0) mg/dL Est Cr Clr Drug Dosing mL/min Estimated GFR (MDRD) ml/min Glucose (74-106) mg/dL Calcium (8.5-10.1) mg/dL Total Bilirubin (0.2-1.0) mg/dL AST (15-37) IU/L ALT (14-63) IU/L Alkaline Phosphatase (46-116) U/L Troponin I < 0.050 (0.000-0.056) ng/mL Total Protein (6.4-8.2) g/dL Albumin (3.4-5.0) g/dL Globulin (2.6-4.0) g/dL Albumin/Globulin Ratio (0.9-1.6) Lipase (73-393) U/L Free T4 (0.76-1.46) ng/dL TSH 3rd Generation (0.36-3.74) uIU/mL HCG, Qual (NEG) Urine Color Urine Appearance Urine pH (5.0-8.0) Ur Specific [place] (1.001-1.035) Urine Protein (NEGATIVE) mg/dL Urine Glucose (UA) (NEGATIVE) mg/dL Urine Ketones (NEGATIVE) mg/dL Urine Occult Blood (NEGATIVE) Urine Nitrite (NEGATIVE) Urine Bilirubin (NEGATIVE) Urine Urobilinogen (<2.0) EU/dL Ur Leukocyte Esterase (NEGATIVE) Urine Opiates Screen (NEGATIVE) Ur Oxycodone Screen (NEGATIVE) Urine Methadone Screen (NEGATIVE) Ur Barbiturates Screen (NEGATIVE) Ur Phencyclidine Scrn (NEGATIVE) Ur Amphetamine Screen (NEGATIVE) U Methamphetamines Scrn (NEGATIVE) U Benzodiazepines Scrn (NEGATIVE) U Cocaine Metab Screen (NEGATIVE) U Marijuana (THC) Screen (NEGATIVE) Influenza Type A RNA (NEGATIVE) Influenza Type B RNA (NEGATIVE) SARS-CoV-2 RNA (ODALYS) (NEGATIVE) 08/23/20 08/23/20 Range/Units 22:30 22:30 WBC (4.0-11.0) K/uL RBC (4.30-5.90) M/uL Hgb (12.0-16.0) g/dL Hct (36.0-46.0) % MCV (80.0-98.0) fL MCH (27.0-32.0) pg MCHC (31.0-37.0) g/dL RDW Std Deviation (28.0-62.0) fl RDW Coeff of Maura (11.0-15.0) % Plt Count (150-400) K/uL MPV (7.40-12.00) fL Neut % (Auto) (48.0-80.0) % Lymph % (Auto) (16.0-40.0) % Parmer % (Auto) (0.0-15.0) % Eos % (Auto) (0.0-7.0) % Baso % (Auto) (0.0-1.5) % Neut # (Auto) (1.4-5.7) K/uL Lymph # (Auto) (0.6-2.4) K/uL Parmer # (Auto) (0.0-0.8) K/uL Eos # (Auto) (0.0-0.7) K/uL Baso # (Auto) (0.0-0.1) K/uL Nucleated RBC % /100WBC Nucleated RBCs # K/uL ESR (0-19) mm/hr D-Dimer, Quantitative (0.0-0.50) mg/L FEU Lactate (0.20-2.00) mmol/L Sodium (136-145) mmol/L Potassium (3.5-5.1) mmol/L Chloride (98-107) mmol/L Carbon Dioxide (21.0-32.0) mmol/L BUN (7.0-18.0) mg/dL Creatinine (0.6-1.0) mg/dL Est Cr Clr Drug Dosing mL/min Estimated GFR (MDRD) ml/min Glucose (74-106) mg/dL Calcium (8.5-10.1) mg/dL Total Bilirubin (0.2-1.0) mg/dL AST (15-37) IU/L ALT (14-63) IU/L Alkaline Phosphatase (46-116) U/L Troponin I (0.000-0.056) ng/mL Total Protein (6.4-8.2) g/dL Albumin (3.4-5.0) g/dL Globulin (2.6-4.0) g/dL Albumin/Globulin Ratio (0.9-1.6) Lipase (73-393) U/L Free T4 (0.76-1.46) ng/dL TSH 3rd Generation (0.36-3.74) uIU/mL HCG, Qual (NEG) Urine Color YELLOW Urine Appearance CLEAR Urine pH 5.5 (5.0-8.0) Ur Specific [place] 1.020 (1.001-1.035) Urine Protein NEGATIVE (NEGATIVE) mg/dL Urine Glucose (UA) NEGATIVE (NEGATIVE) mg/dL Urine Ketones TRACE H (NEGATIVE) mg/dL Urine Occult Blood NEGATIVE (NEGATIVE) Urine Nitrite NEGATIVE (NEGATIVE) Urine Bilirubin NEGATIVE (NEGATIVE) Urine Urobilinogen 0.2 (<2.0) EU/dL Ur Leukocyte Esterase NEGATIVE (NEGATIVE) Urine Opiates Screen NEGATIVE (NEGATIVE) Ur Oxycodone Screen NEGATIVE (NEGATIVE) Urine Methadone Screen NEGATIVE (NEGATIVE) Ur Barbiturates Screen NEGATIVE (NEGATIVE) Ur Phencyclidine Scrn NEGATIVE (NEGATIVE) Ur Amphetamine Screen NEGATIVE (NEGATIVE) U Methamphetamines Scrn NEGATIVE (NEGATIVE) U Benzodiazepines Scrn NEGATIVE (NEGATIVE) U Cocaine Metab Screen NEGATIVE (NEGATIVE) U Marijuana (THC) Screen NEGATIVE (NEGATIVE) Influenza Type A RNA (NEGATIVE) Influenza Type B RNA (NEGATIVE) SARS-CoV-2 RNA (ODALYS) (NEGATIVE) Meds: Medications Generic Name Dose Route Start Last Admin Trade Name Freq PRN Reason Stop Dose Admin Albuterol/Ipratropium 3 ml 08/24/20 01:38 08/24/20 02:05 Duoneb 3.0-0.5 Mg/3 Ml NEB 3 ml Q4HRRT PRN Administration Shortness of Breath Enoxaparin Sodium 40 mg 08/24/20 01:38 08/24/20 02:06 Lovenox SUBCUT 40 mg Q12HR MAGGIE Administration Sodium Chloride 1,000 mls @ 999 mls/hr 08/23/20 19:15 08/23/20 20:01 Normal Saline IV 999 mls/hr ASDIRECTED MAGGIE Administration Lactated Ringer's 1,000 mls @ 999 mls/hr 08/23/20 21:15 08/23/20 21:23 Ringers, Lactated IV 999 mls/hr ASDIRECTED MAGGIE Administration Lactated Ringer's 1,000 mls @ 125 mls/hr 08/24/20 01:45 08/24/20 02:09 Ringers, Lactated IV 125 mls/hr ASDIRECTED MAGGIE Administration Ketorolac Tromethamine 30 mg 08/24/20 01:39 Toradol IVPUSH 08/29/20 01:39 Q6H PRN Pain Ondansetron HCl 4 mg 08/24/20 01:39 Zofran IVPUSH Q4H PRN Nausea/Vomiting Discontinued Medications Generic Name Dose Route Start Last Admin Trade Name Freq PRN Reason Stop Dose Admin Iopamidol 100 ml 08/23/20 23:39 08/23/20 23:39 Isovue Multipack-370 (76%) IVPUSH 08/23/20 23:40 100 ml ONETIME STA Administration Ketorolac Tromethamine 15 mg 08/23/20 21:11 08/23/20 21:17 Toradol IM 08/23/20 21:12 Not Given ONETIME ONE Ketorolac Tromethamine 15 mg 08/23/20 21:13 08/23/20 21:24 Toradol IVPUSH 08/23/20 21:14 15 mg NOW STA Administration Ondansetron HCl 4 mg 08/23/20 21:11 08/23/20 21:24 Zofran IVPUSH 08/23/20 21:12 4 mg ONETIME ONE Administration Departure - Departure Time of Disposition: 00:05 Disposition: Refer to Observation Clinical Impression: Tachycardia - Discharge Information Sepsis Event Note (ED) - Evaluation Sepsis Screening Result: Sepsis Risk - Focused Exam Vital Signs: Vital Signs Temp Pulse Resp BP Pulse Ox 08/23/20 22:33 132 H 18 120/99 H 96 08/23/20 21:47 36.9 C 132 H 18 97 08/23/20 20:27 129 H 18 157/87 H 98 08/23/20 19:01 36.6 C 128 H 18 146/87 H 97 - My Orders Last 24 Hours: My Active Orders 08/23/20 19:15 Sodium Chloride 0.9% [Normal Saline] 1,000 ml IV ASDIRECTED 08/23/20 21:15 Lactated Ringers [Ringers, Lactated] 1,000 ml IV ASDIRECTED - Assessment/Plan Last 24 Hours: My Active Orders 08/23/20 19:15 Sodium Chloride 0.9% [Normal Saline] 1,000 ml IV ASDIRECTED 08/23/20 21:15 Lactated Ringers [Ringers, Lactated] 1,000 ml IV ASDIRECTED
--- NOTE | 2020-08-24 08:15 | PCM.HP.2 ---
H&P History of Present Illness - General Date of Service: 08/24/20 Admit Problem/Dx: Admission Diagnosis/Problem Admission Diagnosis/Problem Tachycardia Source of Information: Patient History Limitations: Reports: No Limitations - History of Present Illness Initial Comments - Free Text/Narative: This 20-year-old female with no significant past medical history [facility] with complaints of shortness of breath generalized malaise and sinus congestion. She reports that the last 5 days she is continuously gotten worse with shortness of breath especially with exertion. She reports she has intermittent cough that is nonproductive. She denies any fevers but does report sore throat, sinus congestion and headache. She reports that she was tested for Covid outpatient clinic and was negative. She denies anyone around her being positive for Covid or having similar symptoms. She reports that she otherwise has been in good health. She does report that over the last 3 to 4 years she has gained a significant amount of weight due to depression and poor eating. She reports she has started exercising more and reports that the day after exercise she is feeling quite fatigued due to her breathing. She denies any history of asthma. She denies any family history of lung disease and/or CAD. In the ER leukocytosis noted at 13.94 lymphocytes low at 15.8%. BMP within normal limits slight elevation of alk phos at 133. TSH 0.6 T4 1.12 UA negative U tox negative Covid and influenza swab negative hCG negative. On EKG she was noted to be tachycardic in the 130s no arrhythmia. She was given fluids but tachycardia persisted. D-dimer was checked which was 0.26 lactic acid 1.6. Chest x-ray showed bilateral groundglass opacities. CTA obtained due to contin ued tachycardia and dyspnea with exertion. CTA revealed continued groundglass opacities bilaterally suspicious for atypical or viral pneumonia. PE negative. She will be admitted for sinus tachycardia. - Related Data Allergies/Adverse Reactions: Allergies Allergy/AdvReac Type Severity Reaction Status Date / Time codeine Allergy Itching Verified 08/24/20 03:30 [From Tylenol-Codeine #3] Home Medications: Home Meds . [No Known Home Meds] 08/23/20 [History] Past Medical History Psychiatric History: Reports: Anxiety - Infectious Disease History Infectious Disease History: Reports: Shingles - Past Surgical History HEENT Surgical History: Reports: Tonsillectomy GI Surgical History: Reports: Appendectomy Social & Family History - Family History Family Medical History: No Pertinent Family History - Tobacco Use Tobacco Use Status *Q: Never Tobacco User - Caffeine Use Caffeine Use: Reports: Soda - Recreational Drug Use Recreational Drug Use: No H&P Review of Systems - Review of Systems: Review Of Systems: See Below General: Reports: Fatigue. Denies: Fever, Chills HEENT: Reports: Headaches, Sinus Congestion, Sore Throat Pulmonary: Reports: Shortness of Breath, Cough. Denies: Sputum, Hemoptysis Cardiovascular: Reports: No Symptoms. Denies: Chest Pain, Syncope Gastrointestinal: Reports: No Symptoms. Denies: Abdominal Pain, Black Stool, Bloody Stool, Nausea, Vomiting Genitourinary: Reports: No Symptoms. Denies: Dysuria, Frequency Musculoskeletal: Reports: No Symptoms Skin: Reports: No Symptoms Psychiatric: Reports: No Symptoms Neurological: Reports: No Symptoms Hematologic/Lymphatic: Reports: No Symptoms Immunologic: Reports: No Symptoms Exam - Exam Exam: See Below - Vital Signs Vital Signs: Last Vital Signs Temp 98.2 F 08/24/20 04:00 Pulse 116 H 08/24/20 04:00 Resp 19 08/24/20 04:00 BP 125/62 08/24/20 04:00 Pulse Ox 97 08/24/20 04:00 Weight: 139.57 kg - Exam General: Alert, Oriented, Cooperative HEENT: Conjunctiva Clear, Mucosa Moist & Herculaneum, Posterior Pharynx Clear Neck: Supple, Trachea Midline Lungs: Normal Respiratory Effort, Decreased Breath Sounds (Bibasilar) Cardiovascular: Regular Rhythm, Tachycardia GI/Abdominal Exam: Normal Bowel Sounds, Soft, Non-Tender, Other (obese abdomen) Back Exam: Normal Inspection Extremities: Normal Inspection, Normal Range of Motion, Non-Tender, No Pedal Edema Neuro Extensive - Mental Status: Alert, Oriented x3 Neuro Extensive - Motor, Sensory, Reflexes: CN II-XII Intact, Normal Gait Psychiatric: Alert, Normal Affect, Normal Mood - Patient Data Lab Results Last 24 hrs: Laboratory Results - last 24 hr 08/23/20 08/23/20 08/23/20 Range/Units 19:25 19:25 19:25 WBC (4.0-11.0) K/uL RBC (4.30-5.90) M/uL Hgb (12.0-16.0) g/dL Hct (36.0-46.0) % MCV (80.0-98.0) fL MCH (27.0-32.0) pg MCHC (31.0-37.0) g/dL RDW Std Deviation (28.0-62.0) fl RDW Coeff of Maura (11.0-15.0) % Plt Count (150-400) K/uL MPV (7.40-12.00) fL Neut % (Auto) (48.0-80.0) % Lymph % (Auto) (16.0-40.0) % Hooker % (Auto) (0.0-15.0) % Eos % (Auto) (0.0-7.0) % Baso % (Auto) (0.0-1.5) % Neut # (Auto) (1.4-5.7) K/uL Lymph # (Auto) (0.6-2.4) K/uL Hooker # (Auto) (0.0-0.8) K/uL Eos # (Auto) (0.0-0.7) K/uL Baso # (Auto) (0.0-0.1) K/uL Nucleated RBC % /100WBC Nucleated RBCs # K/uL ESR (0-19) mm/hr D-Dimer, Quantitative 0.26 (0.0-0.50) mg/L FEU Lactate (0.20-2.00) mmol/L Sodium 139 (136-145) mmol/L Potassium 4.0 (3.5-5.1) mmol/L Chloride 102 (98-107) mmol/L Carbon Dioxide 22.7 (21.0-32.0) mmol/L BUN 7 (7.0-18.0) mg/dL Creatinine 0.9 (0.6-1.0) mg/dL Est Cr Clr Drug Dosing 99.74 mL/min Estimated GFR (MDRD) > 60.0 ml/min Glucose 95 (74-106) mg/dL Calcium 9.2 (8.5-10.1) mg/dL Total Bilirubin 0.5 (0.2-1.0) mg/dL AST 21 (15-37) IU/L ALT 33 (14-63) IU/L Alkaline Phosphatase 133 H (46-116) U/L Troponin I (0.000-0.056) ng/mL Total Protein 8.4 H (6.4-8.2) g/dL Albumin 3.8 (3.4-5.0) g/dL Globulin 4.6 H (2.6-4.0) g/dL Albumin/Globulin Ratio 0.8 L (0.9-1.6) Lipase 77 (73-393) U/L Free T4 (0.76-1.46) ng/dL TSH 3rd Generation (0.36-3.74) uIU/mL HCG, Qual (NEG) Urine Color Urine Appearance Urine pH (5.0-8.0) Ur Specific Butternut (1.001-1.035) Urine Protein (NEGATIVE) mg/dL Urine Glucose (UA) (NEGATIVE) mg/dL Urine Ketones (NEGATIVE) mg/dL Urine Occult Blood (NEGATIVE) Urine Nitrite (NEGATIVE) Urine Bilirubin (NEGATIVE) Urine Urobilinogen (<2.0) EU/dL Ur Leukocyte Esterase (NEGATIVE) Urine Opiates Screen (NEGATIVE) Ur Oxycodone Screen (NEGATIVE) Urine Methadone Screen (NEGATIVE) Ur Barbiturates Screen (NEGATIVE) Ur Phencyclidine Scrn (NEGATIVE) Ur Amphetamine Screen (NEGATIVE) U Methamphetamines Scrn (NEGATIVE) U Benzodiazepines Scrn (NEGATIVE) U Cocaine Metab Screen (NEGATIVE) U Marijuana (THC) Screen (NEGATIVE) Influenza Type A RNA NEGATIVE (NEGATIVE) Influenza Type B RNA NEGATIVE (NEGATIVE) SARS-CoV-2 RNA (ODALYS) NEGATIVE (NEGATIVE) 08/23/20 08/23/20 08/23/20 Range/Units 19:25 19:25 19:25 WBC 13.94 H (4.0-11.0) K/uL RBC 5.81 (4.30-5.90) M/uL Hgb 14.7 (12.0-16.0) g/dL Hct 46.8 H (36.0-46.0) % MCV 80.6 (80.0-98.0) fL MCH 25.3 L (27.0-32.0) pg MCHC 31.4 (31.0-37.0) g/dL RDW Std Deviation 43.2 (28.0-62.0) fl RDW Coeff of Maura 15 (11.0-15.0) % Plt Count 417 H (150-400) K/uL MPV 11.00 (7.40-12.00) fL Neut % (Auto) 76.8 (48.0-80.0) % Lymph % (Auto) 15.8 L (16.0-40.0) % Hooker % (Auto) 6.6 (0.0-15.0) % Eos % (Auto) 0.6 (0.0-7.0) % Baso % (Auto) 0.2 (0.0-1.5) % Neut # (Auto) 10.7 H (1.4-5.7) K/uL Lymph # (Auto) 2.2 (0.6-2.4) K/uL Hooker # (Auto) 0.9 H (0.0-0.8) K/uL Eos # (Auto) 0.1 (0.0-0.7) K/uL Baso # (Auto) 0.0 (0.0-0.1) K/uL Nucleated RBC % 0.0 /100WBC Nucleated RBCs # 0 K/uL ESR (0-19) mm/hr D-Dimer, Quantitative (0.0-0.50) mg/L FEU Lactate (0.20-2.00) mmol/L Sodium (136-145) mmol/L Potassium (3.5-5.1) mmol/L Chloride (98-107) mmol/L Carbon Dioxide (21.0-32.0) mmol/L BUN (7.0-18.0) mg/dL Creatinine (0.6-1.0) mg/dL Est Cr Clr Drug Dosing mL/min Estimated GFR (MDRD) ml/min Glucose (74-106) mg/dL Calcium (8.5-10.1) mg/dL Total Bilirubin (0.2-1.0) mg/dL AST (15-37) IU/L ALT (14-63) IU/L Alkaline Phosphatase (46-116) U/L Troponin I (0.000-0.056) ng/mL Total Protein (6.4-8.2) g/dL Albumin (3.4-5.0) g/dL Globulin (2.6-4.0) g/dL Albumin/Globulin Ratio (0.9-1.6) Lipase (73-393) U/L Free T4 1.12 (0.76-1.46) ng/dL TSH 3rd Generation 0.60 (0.36-3.74) uIU/mL HCG, Qual NEGATIVE (NEG) Urine Color Urine Appearance Urine pH (5.0-8.0) Ur Specific Butternut (1.001-1.035) Urine Protein (NEGATIVE) mg/dL Urine Glucose (UA) (NEGATIVE) mg/dL Urine Ketones (NEGATIVE) mg/dL Urine Occult Blood (NEGATIVE) Urine Nitrite (NEGATIVE) Urine Bilirubin (NEGATIVE) Urine Urobilinogen (<2.0) EU/dL Ur Leukocyte Esterase (NEGATIVE) Urine Opiates Screen (NEGATIVE) Ur Oxycodone Screen (NEGATIVE) Urine Methadone Screen (NEGATIVE) Ur Barbiturates Screen (NEGATIVE) Ur Phencyclidine Scrn (NEGATIVE) Ur Amphetamine Screen (NEGATIVE) U Methamphetamines Scrn (NEGATIVE) U Benzodiazepines Scrn (NEGATIVE) U Cocaine Metab Screen (NEGATIVE) U Marijuana (THC) Screen (NEGATIVE) Influenza Type A RNA (NEGATIVE) Influenza Type B RNA (NEGATIVE) SARS-CoV-2 RNA (ODALYS) (NEGATIVE) 08/23/20 08/23/20 08/23/20 Range/Units 19:25 22:08 22:08 WBC (4.0-11.0) K/uL RBC (4.30-5.90) M/uL Hgb (12.0-16.0) g/dL Hct (36.0-46.0) % MCV (80.0-98.0) fL MCH (27.0-32.0) pg MCHC (31.0-37.0) g/dL RDW Std Deviation (28.0-62.0) fl RDW Coeff of Maura (11.0-15.0) % Plt Count (150-400) K/uL MPV (7.40-12.00) fL Neut % (Auto) (48.0-80.0) % Lymph % (Auto) (16.0-40.0) % Hooker % (Auto) (0.0-15.0) % Eos % (Auto) (0.0-7.0) % Baso % (Auto) (0.0-1.5) % Neut # (Auto) (1.4-5.7) K/uL Lymph # (Auto) (0.6-2.4) K/uL Hooker # (Auto) (0.0-0.8) K/uL Eos # (Auto) (0.0-0.7) K/uL Baso # (Auto) (0.0-0.1) K/uL Nucleated RBC % /100WBC Nucleated RBCs # K/uL ESR 1 (0-19) mm/hr D-Dimer, Quantitative (0.0-0.50) mg/L FEU Lactate 1.6 (0.20-2.00) mmol/L Sodium (136-145) mmol/L Potassium (3.5-5.1) mmol/L Chloride (98-107) mmol/L Carbon Dioxide (21.0-32.0) mmol/L BUN (7.0-18.0) mg/dL Creatinine (0.6-1.0) mg/dL Est Cr Clr Drug Dosing mL/min Estimated GFR (MDRD) ml/min Glucose (74-106) mg/dL Calcium (8.5-10.1) mg/dL Total Bilirubin (0.2-1.0) mg/dL AST (15-37) IU/L ALT (14-63) IU/L Alkaline Phosphatase (46-116) U/L Troponin I < 0.050 (0.000-0.056) ng/mL Total Protein (6.4-8.2) g/dL Albumin (3.4-5.0) g/dL Globulin (2.6-4.0) g/dL Albumin/Globulin Ratio (0.9-1.6) Lipase (73-393) U/L Free T4 (0.76-1.46) ng/dL TSH 3rd Generation (0.36-3.74) uIU/mL HCG, Qual (NEG) Urine Color Urine Appearance Urine pH (5.0-8.0) Ur Specific Butternut (1.001-1.035) Urine Protein (NEGATIVE) mg/dL Urine Glucose (UA) (NEGATIVE) mg/dL Urine Ketones (NEGATIVE) mg/dL Urine Occult Blood (NEGATIVE) Urine Nitrite (NEGATIVE) Urine Bilirubin (NEGATIVE) Urine Urobilinogen (<2.0) EU/dL Ur Leukocyte Esterase (NEGATIVE) Urine Opiates Screen (NEGATIVE) Ur Oxycodone Screen (NEGATIVE) Urine Methadone Screen (NEGATIVE) Ur Barbiturates Screen (NEGATIVE) Ur Phencyclidine Scrn (NEGATIVE) Ur Amphetamine Screen (NEGATIVE) U Methamphetamines Scrn (NEGATIVE) U Benzodiazepines Scrn (NEGATIVE) U Cocaine Metab Screen (NEGATIVE) U Marijuana (THC) Screen (NEGATIVE) Influenza Type A RNA (NEGATIVE) Influenza Type B RNA (NEGATIVE) SARS-CoV-2 RNA (ODALYS) (NEGATIVE) 08/23/20 08/23/20 08/24/20 Range/Units 22:30 22:30 05:15 WBC (4.0-11.0) K/uL RBC (4.30-5.90) M/uL Hgb (12.0-16.0) g/dL Hct (36.0-46.0) % MCV (80.0-98.0) fL MCH (27.0-32.0) pg MCHC (31.0-37.0) g/dL RDW Std Deviation (28.0-62.0) fl RDW Coeff of Maura (11.0-15.0) % Plt Count (150-400) K/uL MPV (7.40-12.00) fL Neut % (Auto) (48.0-80.0) % Lymph % (Auto) (16.0-40.0) % Hooker % (Auto) (0.0-15.0) % Eos % (Auto) (0.0-7.0) % Baso % (Auto) (0.0-1.5) % Neut # (Auto) (1.4-5.7) K/uL Lymph # (Auto) (0.6-2.4) K/uL Hooker # (Auto) (0.0-0.8) K/uL Eos # (Auto) (0.0-0.7) K/uL Baso # (Auto) (0.0-0.1) K/uL Nucleated RBC % /100WBC Nucleated RBCs # K/uL ESR (0-19) mm/hr D-Dimer, Quantitative (0.0-0.50) mg/L FEU Lactate (0.20-2.00) mmol/L Sodium 139 (136-145) mmol/L Potassium 3.7 (3.5-5.1) mmol/L Chloride 104 (98-107) mmol/L Carbon Dioxide 25.1 (21.0-32.0) mmol/L BUN 8 (7.0-18.0) mg/dL Creatinine 1.0 (0.6-1.0) mg/dL Est Cr Clr Drug Dosing 89.77 mL/min Estimated GFR (MDRD) > 60.0 ml/min Glucose 102 (74-106) mg/dL Calcium 8.3 L (8.5-10.1) mg/dL Total Bilirubin (0.2-1.0) mg/dL AST (15-37) IU/L ALT (14-63) IU/L Alkaline Phosphatase (46-116) U/L Troponin I (0.000-0.056) ng/mL Total Protein (6.4-8.2) g/dL Albumin (3.4-5.0) g/dL Globulin (2.6-4.0) g/dL Albumin/Globulin Ratio (0.9-1.6) Lipase (73-393) U/L Free T4 (0.76-1.46) ng/dL TSH 3rd Generation (0.36-3.74) uIU/mL HCG, Qual (NEG) Urine Color YELLOW Urine Appearance CLEAR Urine pH 5.5 (5.0-8.0) Ur Specific Butternut 1.020 (1.001-1.035) Urine Protein NEGATIVE (NEGATIVE) mg/dL Urine Glucose (UA) NEGATIVE (NEGATIVE) mg/dL Urine Ketones TRACE H (NEGATIVE) mg/dL Urine Occult Blood NEGATIVE (NEGATIVE) Urine Nitrite NEGATIVE (NEGATIVE) Urine Bilirubin NEGATIVE (NEGATIVE) Urine Urobilinogen 0.2 (<2.0) EU/dL Ur Leukocyte Esterase NEGATIVE (NEGATIVE) Urine Opiates Screen NEGATIVE (NEGATIVE) Ur Oxycodone Screen NEGATIVE (NEGATIVE) Urine Methadone Screen NEGATIVE (NEGATIVE) Ur Barbiturates Screen NEGATIVE (NEGATIVE) Ur Phencyclidine Scrn NEGATIVE (NEGATIVE) Ur Amphetamine Screen NEGATIVE (NEGATIVE) U Methamphetamines Scrn NEGATIVE (NEGATIVE) U Benzodiazepines Scrn NEGATIVE (NEGATIVE) U Cocaine Metab Screen NEGATIVE (NEGATIVE) U Marijuana (THC) Screen NEGATIVE (NEGATIVE) Influenza Type A RNA (NEGATIVE) Influenza Type B RNA (NEGATIVE) SARS-CoV-2 RNA (ODALYS) (NEGATIVE) 08/24/20 Range/Units 05:15 WBC 13.86 H (4.0-11.0) K/uL RBC 4.82 (4.30-5.90) M/uL Hgb 12.3 (12.0-16.0) g/dL Hct 39.1 (36.0-46.0) % MCV 81.1 (80.0-98.0) fL MCH 25.5 L (27.0-32.0) pg MCHC 31.5 (31.0-37.0) g/dL RDW Std Deviation 44.6 (28.0-62.0) fl RDW Coeff of Maura 15 (11.0-15.0) % Plt Count 339 (150-400) K/uL MPV 10.30 (7.40-12.00) fL Neut % (Auto) 73.4 (48.0-80.0) % Lymph % (Auto) 19.3 (16.0-40.0) % Hooker % (Auto) 6.4 (0.0-15.0) % Eos % (Auto) 0.5 (0.0-7.0) % Baso % (Auto) 0.4 (0.0-1.5) % Neut # (Auto) 10.2 H (1.4-5.7) K/uL Lymph # (Auto) 2.7 H (0.6-2.4) K/uL Hooker # (Auto) 0.9 H (0.0-0.8) K/uL Eos # (Auto) 0.1 (0.0-0.7) K/uL Baso # (Auto) 0.1 (0.0-0.1) K/uL Nucleated RBC % 0.0 /100WBC Nucleated RBCs # 0 K/uL ESR (0-19) mm/hr D-Dimer, Quantitative (0.0-0.50) mg/L FEU Lactate (0.20-2.00) mmol/L Sodium (136-145) mmol/L Potassium (3.5-5.1) mmol/L Chloride (98-107) mmol/L Carbon Dioxide (21.0-32.0) mmol/L BUN (7.0-18.0) mg/dL Creatinine (0.6-1.0) mg/dL Est Cr Clr Drug Dosing mL/min Estimated GFR (MDRD) ml/min Glucose (74-106) mg/dL Calcium (8.5-10.1) mg/dL Total Bilirubin (0.2-1.0) mg/dL AST (15-37) IU/L ALT (14-63) IU/L Alkaline Phosphatase (46-116) U/L Troponin I (0.000-0.056) ng/mL Total Protein (6.4-8.2) g/dL Albumin (3.4-5.0) g/dL Globulin (2.6-4.0) g/dL Albumin/Globulin Ratio (0.9-1.6) Lipase (73-393) U/L Free T4 (0.76-1.46) ng/dL TSH 3rd Generation (0.36-3.74) uIU/mL HCG, Qual (NEG) Urine Color Urine Appearance Urine pH (5.0-8.0) Ur Specific Butternut (1.001-1.035) Urine Protein (NEGATIVE) mg/dL Urine Glucose (UA) (NEGATIVE) mg/dL Urine Ketones (NEGATIVE) mg/dL Urine Occult Blood (NEGATIVE) Urine Nitrite (NEGATIVE) Urine Bilirubin (NEGATIVE) Urine Urobilinogen (<2.0) EU/dL Ur Leukocyte Esterase (NEGATIVE) Urine Opiates Screen (NEGATIVE) Ur Oxycodone Screen (NEGATIVE) Urine Methadone Screen (NEGATIVE) Ur Barbiturates Screen (NEGATIVE) Ur Phencyclidine Scrn (NEGATIVE) Ur Amphetamine Screen (NEGATIVE) U Methamphetamines Scrn (NEGATIVE) U Benzodiazepines Scrn (NEGATIVE) U Cocaine Metab Screen (NEGATIVE) U Marijuana (THC) Screen (NEGATIVE) Influenza Type A RNA (NEGATIVE) Influenza Type B RNA (NEGATIVE) SARS-CoV-2 RNA (ODALYS) (NEGATIVE) Result Diagrams: 08/24/20 05:15 08/24/20 05:15 Sepsis Event Note - Evaluation Sepsis Screening Result: Sepsis Risk - Focused Exam Vital Signs: Vital Signs Temp Pulse Resp BP Pulse Ox Pulse Ox 08/24/20 04:00 98.2 F 116 H 19 125/62 97 08/24/20 01:41 98 08/24/20 01:00 99.0 F 125 H 20 135/65 98 08/24/20 00:28 98.5 F 124 H 18 148/83 H 96 08/23/20 22:33 132 H 18 120/99 H 96 08/23/20 21:47 98.5 F 132 H 18 97 08/23/20 20:27 129 H 18 157/87 H 98 - Problem List (1) Viral pneumonia SNOMED Code(s): 67287720 ICD Code: J12.9 - VIRAL PNEUMONIA, UNSPECIFIED Status: Acute Current Visit: Yes (2) CAP (community acquired pneumonia) SNOMED Code(s): 192611964 ICD Code: J18.9 - PNEUMONIA, UNSPECIFIED ORGANISM Status: Acute Current Visit: Yes Qualifiers: Laterality: unspecified laterality Qualified Code(s): J18.9 - Pneumonia, unspecified organism (3) Tachycardia SNOMED Code(s): 6843998 ICD Code: R00.0 - TACHYCARDIA, UNSPECIFIED Status: Acute Current Visit: Yes (4) Viral syndrome SNOMED Code(s): 03497019 ICD Code: B34.9 - VIRAL INFECTION, UNSPECIFIED Status: Acute Current Visit: No Problem List Initiated/Reviewed/Updated: Yes Orders Last 24hrs: Active Orders 24 hr Category Date Time Status Admission Status [Patient Status] [ADT] Stat ADT 08/24/20 00:05 Active Ambulate [RC] ASDIRECTED Care 08/24/20 01:46 Active Antiembolic Devices [RC] PER UNIT ROUTINE Care 08/24/20 01:42 Active Oxygen Therapy [RC] ASDIRECTED Care 08/24/20 01:41 Active RT Aerosol Therapy [RC] ASDIRECTED Care 08/24/20 01:39 Active Telemetry Monitoring [Cardiac Monitoring] [RC] Q8H Care 08/24/20 01:42 Active Vital Signs [RC] Q4H Care 08/24/20 01:41 Active Regular Diet [DIET] Diet 08/24/20 Breakfast Active Albuterol/Ipratropium [DuoNeb 3.0-0.5 MG/3 ML] Med 08/24/20 01:38 Active 3 ml NEB Q4HRRT PRN Enoxaparin [Lovenox] Med 08/24/20 16:00 Active 40 mg SUBCUT Q12H Ketorolac [Toradol] Med 08/24/20 01:39 Active 30 mg IVPUSH Q6H PRN Lactated Ringers [Ringers, Lactated] 1,000 ml Med 08/24/20 01:45 Active IV ASDIRECTED Ondansetron [Zofran] Med 08/24/20 01:39 Active 4 mg IVPUSH Q4H PRN SCD [Sequential Compression Device] [OM.PC] Routine Oth 08/24/20 01:42 Ordered Medication Orders Albuterol/Ipratropium (Duoneb 3.0-0.5 Mg/3 Ml) 3 ml NEB Q4HRRT PRN PRN Reason: Shortness of Breath Last Admin: 08/24/20 02:05 Dose: 3 ml Documented by: OSMAR Enoxaparin Sodium (Lovenox) 40 mg SUBCUT Q12H MAGGIE Lactated Ringer's (Ringers, Lactated) 1,000 mls @ 125 mls/hr IV ASDIRECTED MAGGIE Last Admin: 08/24/20 02:09 Dose: 125 mls/hr Documented by: OSMAR Ketorolac Tromethamine (Toradol) 30 mg IVPUSH Q6H PRN PRN Reason: Pain Stop: 08/29/20 01:39 Ondansetron HCl (Zofran) 4 mg IVPUSH Q4H PRN PRN Reason: Nausea/Vomiting Assessment/Plan Comment:: This 20 year old female admitted with tachycardia and suspected viral pneumonia and CAP 1. Sinus tachycardia: -Has improved with fluids overnight. -Remains 110-115 with no chest pain or symptoms. -Continue IV fluids today and monitor on telemetry. 2. Viral pneumonia and/or CAP -We will start azithromycin and Rocephin -Check strep pneumo and Legionella urine antigens -Combivent PRN - Oxygen on RA well above 94% - Encourage pulmonary toilet. VTE prophylaxis Lovenox CODE STATUS: Full code Dispo: 1 to 2 days - Mortality Measure Prognosis:: Good
[2020-08-24] MEDS: cefTRIAXone 1 GM in Premix Bag 1 BAG IV SCH (11:44)
[2020-08-24] MEDS: Azithromycin 250 MG Tab PO SCH (11:44)
[2020-08-24] MEDS ORDERED: Acetaminophen 325 MG Tab PO PRN (16:20)
[2020-08-24] MEDS ORDERED: Ibuprofen 400 MG Tab PO PRN (16:22)
[2020-08-24] MEDS: Enoxaparin 40 MG/0.4 ML Syringe SUBCUT SCH (16:46)
[2020-08-25] MEDS: Albuterol/Ipratropium 3.0-0.5 MG/3 ML Neb Soln NEB PRN (00:46)
[2020-08-25] MEDS ORDERED: LORazepam 2 MG/ML SDV IVPUSH PRN (01:23)
[2020-08-25] MEDS: Enoxaparin 40 MG/0.4 ML Syringe SUBCUT SCH (03:31)
[2020-08-25] MEDS: Lactated Ringers 1,000 ML IV SCH (03:32)
[2020-08-25 06:51] LABS: BLOOD UREA NITROGEN,BUN 11 mg/dL (7.0-18.0); CARBON DIOXIDE,CO2 25.3 mmol/L (21.0-32.0); CHLORIDE,CL 106 mmol/L (98-107); GLUCOSE RANDOM 103 mg/dL (74-106); POTASSIUM,K 3.7 mmol/L (3.5-5.1); SODIUM,NA 142 mmol/L (136-145)
--- NOTE | 2020-08-25 08:45 | PCM.DCSUM1 ---
Discharge Summary - Hospital Course Brief History: This 20-year-old female with no significant past medical history presented to the ER with complaints of shortness of breath generalized malaise and sinus congestion. She reports that the last 5 days she is continuously gotten worse with shortness of breath especially with exertion. She reports she has intermittent cough that is nonproductive. She denies any fevers but does report sore throat, sinus congestion and headache. She reports that she was tested for Covid outpatient clinic and was negative. She denies anyone around her being positive for Covid or having similar symptoms. She reports that she otherwise has been in good health. She does report that over the last 3 to 4 years she has gained a significant amount of weight due to depression and poor eating. She reports she has started exercising more and reports that the day after exercise she is feeling quite fatigued due to her breathing. She denies any history of asthma. She denies any family history of lung disease and/or CAD. In the ER leukocytosis noted at 13.94 lymphocytes low at 15.8%. BMP within normal limits slight elevation of alk phos at 133. TSH 0.6 T4 1.12 UA negative U tox negative Covid and influenza swab negative hCG negative. On EKG she was noted to be tachycardic in the 130s no arrhythmia. She was given fluids but tachycardia persisted. D-dimer was checked which was 0.26 lactic acid 1.6. Chest x-ray showed bilateral groundglass opacities. CTA obtained due to continued tachycardia and dyspnea with exertion. CTA revealed continued groundglass opacities bilaterally suspicious for atypical or viral pneumonia. PE negative. She will be admitted for sinus tachycardia. - Discharge Data Discharge Date: 08/25/20 Discharge Disposition: Home, Self-Care 01 Condition: Stable - Referral to Home Health Primary Care Physician: PCP Not In Area - Discharge Diagnosis/Problem(s) (1) Viral pneumonia SNOMED Code(s): 09595436 ICD Code: J12.9 - VIRAL PNEUMONIA, UNSPECIFIED Status: Acute Current Visit: Yes (2) CAP (community acquired pneumonia) SNOMED Code(s): 527039398 ICD Code: J18.9 - PNEUMONIA, UNSPECIFIED ORGANISM Status: Acute Current Visit: Yes Qualifiers: Laterality: unspecified laterality Qualified Code(s): J18.9 - Pneumonia, unspecified organism (3) Tachycardia SNOMED Code(s): 5377046 ICD Code: R00.0 - TACHYCARDIA, UNSPECIFIED Status: Acute Current Visit: Yes (4) Viral syndrome SNOMED Code(s): 57249744 ICD Code: B34.9 - VIRAL INFECTION, UNSPECIFIED Status: Acute Current Visit: No - Patient Summary/Data Hospital Course: Admission diagnoses: Tachycardia CAP, viral and possible bacterial Discharge diagnoses: Tachycardia resolved CAP, viral and possible bacterial Other PMH: Depression/anxiety Hilary Rosas was admitted secondary to sinus tachycardia noted in the ER when she presented with shortness of breath and cough. Heart rates were noted in the 130s not improve with IV fluids. D-dimer was negative CTA was obtained which showed bilateral groundglass opacities but was negative for PE. She was mated and continued on fluids. She was also started on Rocephin and azithromycin for CAP which could be viral or bacterial in nature. Leukocytosis was elevated on admission and remained elevated the following day. Tachycardia resolved last evening. She does have some history of depression and anxiety and has had a couple instances of increased anxiety with flushing and increased heart rate here in the hospital. She is currently not on medication for this and this would be beneficial for her to evaluate with PCP. She was monitored on telemetry, sinus tach remained no arrhythmias noted. Today sinus tachycardia is resolved heart rates 70s to 90s. Tachycardia could be component of acute illness with CAP as well as anxiety. She continues to not need any oxygen. Leukocytosis has resolved. She will be discharged home today with a azithromycin 500 mg for 5 more days along with cefdinir 300 mg twice daily for 5 more days. She is to follow-up with PCP in 1 to 2 weeks. She is to return to the ER or clinic sooner if concerns should arise. - Patient Instructions Diet: Regular Diet as Tolerated Activity: No Strenuous Activities, Rest and Relax Today Showering/Bathing: May Shower Notify Provider of: Fever, Increased Pain, Swelling and Redness, Drainage, Nausea and/or Vomiting Other/Special Instructions: Continue to social distance and wear a mask when social distancing is not possible or when in public - Discharge Plan *PRESCRIPTION DRUG MONITORING PROGRAM REVIEWED*: Not Applicable *COPY OF PRESCRIPTION DRUG MONITORING REPORT IN PATIENT LICHA: Not Applicable Prescriptions/Med Rec: Albuterol Sulfate [Albuterol Sulfate HFA] 1 puff INH Q4H PRN #1 inhaler PRN Reason: wheezing, SOB Azithromycin 500 mg PO DAILY #5 tablet Cefdinir 300 mg PO BID #10 capsule Benzonatate [Tessalon Perle] 100 mg PO TID PRN #30 capsule PRN Reason: Cough Home Medications: Home Meds Albuterol Sulfate [Albuterol Sulfate HFA] 1 puff INH Q4H PRN #1 inhaler 08/25/20 [Rx] Azithromycin 500 mg PO DAILY #5 tablet 08/25/20 [Rx] Benzonatate [Tessalon Perle] 100 mg PO TID PRN #30 capsule 08/25/20 [Rx] Cefdinir 300 mg PO BID #10 capsule 08/25/20 [Rx] Oxygen Therapy Mode: Room Air Patient Handouts: Cefdinir Capsules, Sinus Tachycardia, Azithromycin tablets, Community-Acquired Pneumonia, Adult Referrals: Starla Carney NP [Nurse Practitioner] - 09/03/20 2:30 pm - Discharge Summary/Plan Comment DC Time >30 min.: No - Patient Data Vitals - Most Recent: Last Vital Signs Temp 96.9 F 08/25/20 07:33 Pulse 96 08/25/20 07:33 Resp 18 08/25/20 07:33 BP 130/60 08/25/20 07:33 Pulse Ox 97 08/25/20 07:33 Weight - Most Recent: 139.57 kg I&O - Last 24 hours: Intake & Output 08/24/20 08/25/20 08/25/20 22:59 06:59 14:59 Intake Total 2653 920 Output Total 1825 1150 Balance 828 -230 Lab Results - Last 24 hrs: Laboratory Results - last 24 hr 08/25/20 08/25/20 Range/Units 05:50 05:50 WBC 9.71 (4.0-11.0) K/uL RBC 4.86 (4.30-5.90) M/uL Hgb 12.1 (12.0-16.0) g/dL Hct 40.0 (36.0-46.0) % MCV 82.3 (80.0-98.0) fL MCH 24.9 L (27.0-32.0) pg MCHC 30.3 L (31.0-37.0) g/dL RDW Std Deviation 45.4 (28.0-62.0) fl RDW Coeff of Maura 15 (11.0-15.0) % Plt Count 316 (150-400) K/uL MPV 10.50 (7.40-12.00) fL Neut % (Auto) 54.1 (48.0-80.0) % Lymph % (Auto) 33.4 (16.0-40.0) % Archuleta % (Auto) 9.5 (0.0-15.0) % Eos % (Auto) 2.6 (0.0-7.0) % Baso % (Auto) 0.4 (0.0-1.5) % Neut # (Auto) 5.3 (1.4-5.7) K/uL Lymph # (Auto) 3.2 H (0.6-2.4) K/uL Archuleta # (Auto) 0.9 H (0.0-0.8) K/uL Eos # (Auto) 0.3 (0.0-0.7) K/uL Baso # (Auto) 0.0 (0.0-0.1) K/uL Nucleated RBC % 0.0 /100WBC Nucleated RBCs # 0 K/uL Sodium 142 (136-145) mmol/L Potassium 3.7 (3.5-5.1) mmol/L Chloride 106 (98-107) mmol/L Carbon Dioxide 25.3 (21.0-32.0) mmol/L BUN 11 (7.0-18.0) mg/dL Creatinine 0.8 (0.6-1.0) mg/dL Est Cr Clr Drug Dosing 112.21 mL/min Estimated GFR (MDRD) > 60.0 ml/min Glucose 103 (74-106) mg/dL Calcium 8.4 L (8.5-10.1) mg/dL Magnesium 2.1 (1.8-2.4) mg/dL Med Orders - Current: Current Medications Acetaminophen (Tylenol) 650 mg PO Q4H PRN PRN Reason: Pain (Mild 1-3)/fever Last Admin: 08/25/20 08:18 Dose: 650 mg Documented by: Albuterol/Ipratropium (Duoneb 3.0-0.5 Mg/3 Ml) 3 ml NEB Q4HRRT PRN PRN Reason: Shortness of Breath Last Admin: 08/25/20 00:46 Dose: 3 ml Documented by: Azithromycin (Zithromax) 500 mg PO Q24H [facility] Last Admin: 08/24/20 11:44 Dose: 500 mg Documented by: Enoxaparin Sodium (Lovenox) 40 mg SUBCUT Q12H [facility] Last Admin: 08/25/20 03:31 Dose: 40 mg Documented by: Ceftriaxone Sodium/Dextrose 1 (gm/ Premix) 50 mls @ 100 mls/hr IV Q24H [facility] Last Admin: 08/24/20 11:44 Dose: 100 mls/hr Documented by: Ibuprofen (Motrin) 400 mg PO Q6H PRN PRN Reason: Pain Lorazepam (Ativan) 1 mg IVPUSH Q6H PRN PRN Reason: Anxiety Ondansetron HCl (Zofran) 4 mg IVPUSH Q4H PRN PRN Reason: Nausea/Vomiting Last Admin: 08/24/20 12:52 Dose: 4 mg Documented by: Discontinued Medications Enoxaparin Sodium (Lovenox) 40 mg SUBCUT Q12HR [facility] Last Admin: 08/24/20 02:06 Dose: 40 mg Documented by: Sodium Chloride (Normal Saline) 1,000 mls @ 999 mls/hr IV ASDIRECTED [facility] Last Admin: 08/23/20 20:01 Dose: 999 mls/hr Documented by: Lactated Ringer's (Ringers, Lactated) 1,000 mls @ 999 [facility] Last Admin: 08/23/20 21:23 Dose: 999 mls/hr Documented by: Lactated Ringer's (Ringers, Lactated) 1,000 mls @ 125 mls[facility] Last Admin: 08/25/20 03:32 Dose: 125 mls/hr Documented by: Iopamidol (Isovue Multipack-370 (76%)) 100 ml IVPUSH ONETIME STA Stop: 08/23/20 23:40 Last Admin: 08/23/20 23:39 Dose: 100 ml Documented by: Ketorolac Tromethamine (Toradol) 15 mg IM ONETIME ONE Stop: 08/23/20 21:12 Last Admin: 08/23/20 21:17 Dose: Not Given Documented by: Ketorolac Tromethamine (Toradol) 15 mg IVPUSH NOW STA Stop: 08/23/20 21:14 Last Admin: 08/23/20 21:24 Dose: 15 mg Documented by: Ketorolac Tromethamine (Toradol) 30 mg IVPUSH Q6H PRN PRN Reason: Pain Stop: 08/29/20 01:39 Ondansetron HCl (Zofran) 4 mg IVPUSH ONETIME ONE Stop: 08/23/20 21:12 Last Admin: 08/23/20 21:24 Dose: 4 mg Documented by: - Exam Quality Assessment: Reports: DVT Prophylaxis. Denies: Supplemental Oxygen General: Reports: Alert, Oriented, Cooperative, No Acute Distress HEENT: Reports: Pupils Equal Neck: Reports: Supple, Trachea Midline Lungs: Reports: Clear to Auscultation, Normal Respiratory Effort Cardiovascular: Reports: Regular Rate, Regular Rhythm GI/Abdominal Exam: Normal Bowel Sounds, Soft, Non-Tender, Other (Obese abdomen) Back Exam: Reports: Normal Inspection, Full Range of Motion Extremities: Normal Inspection, Normal Range of Motion, No Pedal Edema Neurological: Reports: No New Focal Deficit Psy/Mental Status: Reports: Alert, Normal Affect, Normal Mood
[2020-08-25] MEDS: Azithromycin 250 MG Tab PO SCH (11:00)
[2020-08-25] MEDS: cefTRIAXone 1 GM in Premix Bag 1 BAG IV SCH (11:16)
== END 2020-08-25 12:35 | disposition home or self-care (01) ==
LOC: MW.ED 18:43 → MW.MS 08-24 00:05
PROVIDERS: ADMIT Student in an Organized Health Care Education/Training Program; ATTEND Student in an Organized Health Care Education/Training Program
DX: J12.9 Viral pneumonia, unspecified (principal); R00.0 Tachycardia, unspecified; R91.8 Other nonspecific abnormal finding of lung field; D72.829 Elevated white blood cell count, unspecified; E66.9 Obesity, unspecified; Z68.42 Body mass index [BMI] 45.0-49.9, adult; Z20.822 Contact with and (suspected) exposure to COVID-19; Z79.899 Other long term (current) drug therapy; Z88.5 Allergy status to narcotic agent; Z98.890 Other specified postprocedural states
CPT/HCPCS: 0240U; 36415; 71045; 71275; 80048; 80053; 80305; 81003; 83605; 83690; 83735; 84439; 84443; 84484; 84703; 85025; 85379; 85652; 87899; 93005; 96372; 96374; 96375; 96376; 99285; A9270; G0378; J0696; J1650; J1885; J2405; J7030; J7120; Q9967; 93010; J7620-GY

== ENCOUNTER 2020-08-25 22:51 | Emergency (ER) | payer MEDICAID ==
[2020-08-25] MEDS ORDERED: Ketorolac 30 MG/ML SDV IVPUSH ONE (23:18)
[2020-08-25] MEDS ORDERED: Acetaminophen 500 MG Tab PO ONE (23:18)
[2020-08-25] MEDS ORDERED: Sodium Chloride 0.9% 10 ML Syringe FLUSH PRN (23:18)
[2020-08-25] MEDS ORDERED: LORazepam 2 MG/ML SDV IVPUSH ONE (23:18)
[2020-08-25] MEDS ORDERED: Sodium Chloride 0.9% 2.5 ML Syringe FLUSH PRN (23:18)
[2020-08-25] MEDS ORDERED: Sodium Chloride 0.9% 1,000 ML IV ONE (23:18)
[2020-08-26 00:16] LABS: BLOOD UREA NITROGEN,BUN 12 mg/dL (7.0-18.0); CARBON DIOXIDE,CO2 22.6 mmol/L (21.0-32.0); CHLORIDE,CL 104 mmol/L (98-107); GLUCOSE RANDOM 96 mg/dL (74-106); POTASSIUM,K 3.9 mmol/L (3.5-5.1); SODIUM,NA 140 mmol/L (136-145)
--- NOTE | 2020-08-26 00:39 | CR ---
INDICATION: Cough COMPARISON: 08/23/2020 FINDINGS: PA and lateral views of the chest were obtained. The lungs remain clear. No focal or diffuse infiltrates are present. The heart remains normal in size. The mediastinum is normal in appearance. The osseous structures are normal in appearance for the patient`s age. IMPRESSION: Normal chest two views. Dictated by Kobe Peck MD @ Aug 26 2020 12:35AM Signed by Dr. Kobe Peck @ Aug 26 2020 12:36AM
--- NOTE | 2020-08-26 00:57 | EDM.PDOC ---
ED HPI GENERAL MEDICAL PROBLEM - General Chief Complaint: Respiratory Problem Stated Complaint: SOB Time Seen by Provider: 08/25/20 23:01 - History of Present Illness INITIAL COMMENTS - FREE TEXT/NARRATIVE: HISTORY AND PHYSICAL: History of present illness: This is a 20-year-old female with a recent diagnosis of community acquired pneumonia/atypical pneumonia who was just discharged from the hospital earlier today after an admission for tachycardia that was felt to be secondary to infection. During her admission, the patient had a CTA which revealed no evidence of pulmonary embolism but did have evidence of increased interstitial markings consistent with atypical pneumonia. Patient presents back to the ER because she wants to know why she is still coughing and still feels short of breath. Patient reports she has had fevers at home. Patient reports that she is been having episodes of nausea and vomiting that have sometimes related with posttussive episodes and sometimes vomiting on her own. Patient denies any diarrhea. Patient denies any dysuria, frequency, urgency. Patient reports she has been having decreased urinary output. Patient denies any alcohol, tobacco or drugs. Patient reports that she is feeling anxious and is having a hard time falling asleep and is requesting medications to help her with her anxiety so that she get some rest. Patient feels that the anxiety is related to the coughing that she is doing. She reports that she has been taking cough medicine that was instructed for her to take at home but she reports that she feels that the cough medicine is not helping her. Patient has had Covid test here that has been negative. Patient denies any pain radiating to her arms, jaw or back. Patient reports pain in her chest with deep inspiration and coughing. Patient has any calf tenderness. Patient denies any nasal congestion, sinus pressure, sore throat, ear pain. Patient reports one episode of hemoptysis while she was in the hospital yesterday but no further episodes of hemoptysis at home. Review of systems: As per history of present illness and below otherwise all systems reviewed and negative. Past medical history: As per history of present illness and as reviewed below otherwise noncontributory. Surgical history: As per history of present illness and as reviewed below otherwise noncontributory. Social history: No reported history of drug or alcohol abuse. Family history: As per history of present illness and as reviewed below otherwise noncontributory. Physical exam: HEENT: Atraumatic, normocephalic, pupils reactive, negative for conjunctival p allor or scleral icterus, dry membranes moist, throat clear, neck supple, nontender, trachea midline. Lungs: Clear to auscultation, breath sounds equal bilaterally, chest nontender. Occasional end expiratory wheeze. Heart: S1S2, regular, negative for clicks, rubs, or JVD. Abdomen: Soft, nondistended, nontender. Negative for masses or hepatosplenomegaly. Negative for costovertebral tenderness. Pelvis: Stable nontender. Genitourinary: Deferred. Rectal: Deferred. Extremities: Atraumatic, negative for cords or calf pain. Neurovascular unremarkable. Neuro: Awake, alert, oriented. Cranial nerves II through XII unremarkable. Cerebellum unremarkable. Motor and sensory unremarkable throughout. Exam nonfocal. Diagnostics: Chest x-ray: No acute disease CBC reveals slightly elevated WBC count otherwise normal CMP within normal limits Urine drug screen, urinalysis normal EKG: As interpreted by ER physician: Kathie: Nonspecific ST-T wave abnormalities Normal axis No evidence of ST elevation RI Sinus tachycardia heart rate of 126 Therapeutics: Patient given 1 L of NSS in the ER as well as Toradol, Tylenol, Ativan 1 mg to assist her with pain, fever, anxiety. Patient does appear to be clinically dehydrated and was given 1 L of NSS. Assessment and plan: This is a 20-year-old female who presents ER today secondary to persistent coughing. Patient reports that she was under the impression that she would no longer have any coughing with the medication that she was told to take. Patient reports that she was given a prescription for antibiotic but was told to start taking it tomorrow because she was given her dose earlier today while still in the hospital. While in the ER, we did repeat patient's labs to assure stability. Patient has no significant changes in her blood chest. A TSH was performed secondary to her tachycardia which was within normal limits. The etiology of her tachycardia is most likely related to her recent viral pneumonia as seen on her CT scan of her chest, dehydration, fever, pain and anxiety. I have discussed the results with the patient and is that she feels extremely comfortable to go home. She reports that she feels better after the medication that was given to her here in the ED. Patient was heart rate in the ER prior to discharge is between 105-115 bpm during my final evaluation. I have discussed with the patient that she needs to follow-up with her primary care doctor to reassess her heart rate after her infection is cleared up. Reassessment at the time of disposition demonstrates that the patient is in no acute distress. The patient has remained stable throughout the entire ED visit and is without objective evidence for acute process requiring urgent intervention or hospitalization. The patient is stable for discharge, counseling is provided as documented above, discussed symptomatic treatment and specific conditions for return. I have spoken with the patient/caregiver and discussed todays findings, in addition to providing specific details for the plan of care. Questions are answered and there is agreement with the plan. Definitive disposition and diagnosis as appropriate pending reevaluation and review of above. - Related Data Allergies Allergy/AdvReac Type Severity Reaction Status Date / Time codeine Allergy Itching Verified 08/25/20 23:01 [From Tylenol-Codeine #3] Home Meds: Home Meds Albuterol Sulfate [Albuterol Sulfate HFA] 1 puff INH Q4H PRN #1 inhaler 08/25/20 [Rx] Azithromycin 500 mg PO DAILY #5 tablet 08/25/20 [Rx] Benzonatate [Tessalon Perle] 100 mg PO TID PRN #30 capsule 08/25/20 [Rx] Cefdinir 300 mg PO BID #10 capsule 08/25/20 [Rx] Past Medical History Psychiatric History: Reports: Anxiety - Infectious Disease History Infectious Disease History: Reports: Shingles - Past Surgical History HEENT Surgical History: Reports: Tonsillectomy GI Surgical History: Reports: Appendectomy Social & Family History - Family History Family Medical History: No Pertinent Family History - Tobacco Use Tobacco Use Status *Q: Never Tobacco User - Caffeine Use Caffeine Use: Reports: None - Recreational Drug Use Recreational Drug Use: No ED ROS GENERAL - Review of Systems Review Of Systems: See Below ED EXAM, GENERAL - Physical Exam Exam: See Below Course - Vital Signs Last Recorded V/S: Last Vital Signs Temp 98.3 F 08/25/20 22:59 Pulse 138 H 08/25/20 22:59 Resp 18 08/25/20 22:59 BP 138/84 08/25/20 22:59 Pulse Ox 96 08/25/20 22:59 - Orders/Labs/Meds Orders: Active Orders 24 hr Category Date Time Status EKG Documentation Completion [RC] AM Care 08/25/20 23:18 Active B-TYPE NATRIURETIC PEPTIDE,BNP [CHEM] Stat Lab 08/25/20 23:20 Received LACTATE WITH REFLEX [BG] Stat Lab 08/25/20 23:18 Ordered Sodium Chloride 0.9% [Saline Flush] Med 08/25/20 23:18 Active 10 ml FLUSH ASDIRECTED PRN Sodium Chloride 0.9% [Saline Flush] Med 08/25/20 23:18 Active 2.5 ml FLUSH ASDIRECTED PRN Saline Lock Insert [OM.PC] Stat Oth 08/25/20 23:18 Ordered Medication Orders Sodium Chloride (Saline Flush) 10 ml FLUSH ASDIRECTED PRN PRN Reason: Keep Vein Open Sodium Chloride (Saline Flush) 2.5 ml FLUSH ASDIRECTED PRN PRN Reason: Keep Vein Open Labs: Laboratory Tests 08/25/20 08/25/20 08/25/20 Range/Units 23:20 23:20 23:53 WBC 15.81 H (4.0-11.0) K/uL RBC 5.72 (4.30-5.90) M/uL Hgb 14.7 (12.0-16.0) g/dL Hct 46.4 H (36.0-46.0) % MCV 81.1 (80.0-98.0) fL MCH 25.7 L (27.0-32.0) pg MCHC 31.7 (31.0-37.0) g/dL RDW Std Deviation 44.0 (28.0-62.0) fl RDW Coeff of Maura 15 (11.0-15.0) % Plt Count 328 (150-400) K/uL MPV 10.40 (7.40-12.00) fL Neut % (Auto) 81.7 H (48.0-80.0) % Lymph % (Auto) 11.9 L (16.0-40.0) % [place] % (Auto) 5.0 (0.0-15.0) % Eos % (Auto) 1.1 (0.0-7.0) % Baso % (Auto) 0.3 (0.0-1.5) % Neut # (Auto) 12.9 H (1.4-5.7) K/uL Lymph # (Auto) 1.9 (0.6-2.4) K/uL [place] # (Auto) 0.8 (0.0-0.8) K/uL Eos # (Auto) 0.2 (0.0-0.7) K/uL Baso # (Auto) 0.1 (0.0-0.1) K/uL Nucleated RBC % 0.0 /100WBC Nucleated RBCs # 0 K/uL Sodium 140 (136-145) mmol/L Potassium 3.9 (3.5-5.1) mmol/L Chloride 104 (98-107) mmol/L Carbon Dioxide 22.6 (21.0-32.0) mmol/L BUN 12 (7.0-18.0) mg/dL Creatinine 1.1 H (0.6-1.0) mg/dL Est Cr Clr Drug Dosing 81.61 mL/min Estimated GFR (MDRD) > 60.0 ml/min Glucose 96 (74-106) mg/dL Calcium 9.1 (8.5-10.1) mg/dL Total Bilirubin 0.3 (0.2-1.0) mg/dL AST 22 (15-37) IU/L ALT 35 (14-63) IU/L Alkaline Phosphatase 129 H (46-116) U/L Total Protein 8.3 H (6.4-8.2) g/dL Albumin 3.7 (3.4-5.0) g/dL Globulin 4.6 H (2.6-4.0) g/dL Albumin/Globulin Ratio 0.8 L (0.9-1.6) TSH 3rd Generation 1.39 (0.36-3.74) uIU/mL Urine Color Urine Appearance Urine pH (5.0-8.0) Ur Specific [place] (1.001-1.035) Urine Protein (NEGATIVE) mg/dL Urine Glucose (UA) (NEGATIVE) mg/dL Urine Ketones (NEGATIVE) mg/dL Urine Occult Blood (NEGATIVE) Urine Nitrite (NEGATIVE) Urine Bilirubin (NEGATIVE) Urine Urobilinogen (<2.0) EU/dL Ur Leukocyte Esterase (NEGATIVE) Urine HCG, Qual NEGATIVE (NEGATIVE) Urine Opiates Screen (NEGATIVE) Ur Oxycodone Screen (NEGATIVE) Urine Methadone Screen (NEGATIVE) Ur Barbiturates Screen (NEGATIVE) Ur Phencyclidine Scrn (NEGATIVE) Ur Amphetamine Screen (NEGATIVE) U Methamphetamines Scrn (NEGATIVE) U Benzodiazepines Scrn (NEGATIVE) U Cocaine Metab Screen (NEGATIVE) U Marijuana (THC) Screen (NEGATIVE) 08/25/20 08/25/20 Range/Units 23:53 23:53 WBC (4.0-11.0) K/uL RBC (4.30-5.90) M/uL Hgb (12.0-16.0) g/dL Hct (36.0-46.0) % MCV (80.0-98.0) fL MCH (27.0-32.0) pg MCHC (31.0-37.0) g/dL RDW Std Deviation (28.0-62.0) fl RDW Coeff of Maura (11.0-15.0) % Plt Count (150-400) K/uL MPV (7.40-12.00) fL Neut % (Auto) (48.0-80.0) % Lymph % (Auto) (16.0-40.0) % [place] % (Auto) (0.0-15.0) % Eos % (Auto) (0.0-7.0) % Baso % (Auto) (0.0-1.5) % Neut # (Auto) (1.4-5.7) K/uL Lymph # (Auto) (0.6-2.4) K/uL [place] # (Auto) (0.0-0.8) K/uL Eos # (Auto) (0.0-0.7) K/uL Baso # (Auto) (0.0-0.1) K/uL Nucleated RBC % /100WBC Nucleated RBCs # K/uL Sodium (136-145) mmol/L Potassium (3.5-5.1) mmol/L Chloride (98-107) mmol/L Carbon Dioxide (21.0-32.0) mmol/L BUN (7.0-18.0) mg/dL Creatinine (0.6-1.0) mg/dL Est Cr Clr Drug Dosing mL/min Estimated GFR (MDRD) ml/min Glucose (74-106) mg/dL Calcium (8.5-10.1) mg/dL Total Bilirubin (0.2-1.0) mg/dL AST (15-37) IU/L ALT (14-63) IU/L Alkaline Phosphatase (46-116) U/L Total Protein (6.4-8.2) g/dL Albumin (3.4-5.0) g/dL Globulin (2.6-4.0) g/dL Albumin/Globulin Ratio (0.9-1.6) TSH 3rd Generation (0.36-3.74) uIU/mL Urine Color YELLOW Urine Appearance CLEAR Urine pH 7.0 (5.0-8.0) Ur Specific [place] 1.010 (1.001-1.035) Urine Protein NEGATIVE (NEGATIVE) mg/dL Urine Glucose (UA) NEGATIVE (NEGATIVE) mg/dL Urine Ketones NEGATIVE (NEGATIVE) mg/dL Urine Occult Blood NEGATIVE (NEGATIVE) Urine Nitrite NEGATIVE (NEGATIVE) Urine Bilirubin NEGATIVE (NEGATIVE) Urine Urobilinogen 0.2 (<2.0) EU/dL Ur Leukocyte Esterase NEGATIVE (NEGATIVE) Urine HCG, Qual (NEGATIVE) Urine Opiates Screen NEGATIVE (NEGATIVE) Ur Oxycodone Screen NEGATIVE (NEGATIVE) Urine Methadone Screen NEGATIVE (NEGATIVE) Ur Barbiturates Screen NEGATIVE (NEGATIVE) Ur Phencyclidine Scrn NEGATIVE (NEGATIVE) Ur Amphetamine Screen NEGATIVE (NEGATIVE) U Methamphetamines Scrn NEGATIVE (NEGATIVE) U Benzodiazepines Scrn NEGATIVE (NEGATIVE) U Cocaine Metab Screen NEGATIVE (NEGATIVE) U Marijuana (THC) Screen NEGATIVE (NEGATIVE) Meds: Medications Generic Name Dose Route Start Last Admin Trade Name Freq PRN Reason Stop Dose Admin Sodium Chloride 10 ml 08/25/20 23:18 Saline Flush FLUSH ASDIRECTED PRN Keep Vein Open Sodium Chloride 2.5 ml 08/25/20 23:18 Saline Flush FLUSH ASDIRECTED PRN Keep Vein Open Discontinued Medications Generic Name Dose Route Start Last Admin Trade Name Freq PRN Reason Stop Dose Admin Acetaminophen 1,000 mg 08/25/20 23:18 08/25/20 23:34 Tylenol Extra Strength PO 08/25/20 23:19 1,000 mg ONETIME ONE Administration Sodium Chloride 1,000 mls @ 999 mls/hr 08/25/20 23:18 08/25/20 23:34 Normal Saline IV 08/26/20 00:18 999 mls/hr .Bolus ONE Administration Ketorolac Tromethamine 30 mg 08/25/20 23:18 08/25/20 23:35 Toradol IVPUSH 08/25/20 23:19 30 mg ONETIME ONE Administration Lorazepam 1 mg 08/25/20 23:18 08/25/20 23:34 Ativan IVPUSH 08/25/20 23:19 1 mg ONETIME ONE Administration Departure - Departure Time of Disposition: 00:57 Disposition: Home, Self-Care 01 Condition: Good Clinical Impression: Viral pneumonia, Dyspnea, Tachycardia, Cough - Discharge Information Instructions: Shortness of Breath, Adult, [id number], Community-Acquired Pneumonia, Adult, [id number] Referrals: PCP,None [Primary Care Provider] - Additional Instructions: Your seen and evaluated in the ER today secondary to persistent cough, fever, dehydration, rapid heart rate. Your reevaluation ER did not reveal any new or significant abnormalities. You are currently being treated for a community- acquired pneumonia/atypical pneumonia/viral pneumonia. Please take your antibiotics as prescribed to by the hospital service. Please make an appointment to see your family doctor in the next 2 to 3 days for reevaluation. Please make sure you drink plenty of fluids. You can take ibuprofen and Tylenol as needed for fevers and muscle aches to help you get some rest. The following information is given to patients seen in the emergency department who are being discharged to home. This information is to outline your options for follow-up care. We provide all patients seen in our emergency department with a follow-up referral. The need for follow-up, as well as the timing and circumstances, are variable depending upon the specifics of your emergency department visit. If you don't have a primary care physician on staff, we will provide you with a referral. We always advise you to contact your personal physician following an emergency department visit to inform them of the circumstance of the visit and for follow-up with them and/or the need for any referrals to a consulting specialist. The emergency department will also refer you to a specialist when appropriate. This referral assures that you have the opportunity for follow-up care with a specialist. All of these measure are taken in an effort to provide you with optimal care, which includes your follow-up. Under all circumstances we always encourage you to contact your private physician who remains a resource for coordinating your care. When calling for follow-up care, please make the office aware that this follow-up is from your recent emergency room visit. If for any reason you are refused follow-up, please contact the [facility] Emergency Department at and asked to speak to the emergency department charge nurse. [facility] - Primary Care [address] [place] [address] [facility] [address] [place] [id number] Sepsis Event Note (ED) - Evaluation Sepsis Screening Result: No Definite Risk - Focused Exam Vital Signs: Vital Signs Temp Pulse Resp BP Pulse Ox 08/25/20 22:59 98.3 F 138 H 18 138/84 96 - My Orders Last 24 Hours: My Active Orders 08/25/20 23:18 EKG Documentation Completion [RC] AM LACTATE WITH REFLEX [BG] Stat Sodium Chloride 0.9% [Saline Flush] 10 ml FLUSH ASDIRECTED PRN Sodium Chloride 0.9% [Saline Flush] 2.5 ml FLUSH ASDIRECTED PRN Saline Lock Insert [OM.PC] Stat 08/25/20 23:20 B-TYPE NATRIURETIC PEPTIDE,BNP [CHEM] Stat - Assessment/Plan Last 24 Hours: My Active Orders 08/25/20 23:18 EKG Documentation Completion [RC] AM LACTATE WITH REFLEX [BG] Stat Sodium Chloride 0.9% [Saline Flush] 10 ml FLUSH ASDIRECTED PRN Sodium Chloride 0.9% [Saline Flush] 2.5 ml FLUSH ASDIRECTED PRN Saline Lock Insert [OM.PC] Stat 08/25/20 23:20 B-TYPE NATRIURETIC PEPTIDE,BNP [CHEM] Stat
== END 2020-08-26 01:12 | disposition home or self-care (01) ==
LOC: MW.ED 22:51
DX: J12.9 Viral pneumonia, unspecified (principal); R00.0 Tachycardia, unspecified; Z88.5 Allergy status to narcotic agent
CPT/HCPCS: 36415; 71046; 80053; 80305; 81003; 81025; 83880; 84443; 85025; 96374; 96375; 99285; A9270; J1885; J2060; J7030; 93010; 99284

== ENCOUNTER 2020-08-28 01:35 | Inpatient (IN) | payer MEDICAID ==
[2020-08-28] MEDS ORDERED: Ketorolac 15 MG/ML SDV IVPUSH ONE (02:03)
[2020-08-28] MEDS ORDERED: Sodium Chloride 0.9% 1,000 ML IV ONE ×2 (02:03→05:02)
[2020-08-28] MEDS ORDERED: Sodium Chloride 0.9% 10 ML Syringe FLUSH PRN (02:03)
[2020-08-28] MEDS ORDERED: Albuterol/Ipratropium 3.0-0.5 MG/3 ML Neb Soln NEB ONE (02:03)
[2020-08-28] MEDS ORDERED: Ondansetron 4 MG/2 ML SDV IVPUSH ONE (02:03)
[2020-08-28] MEDS ORDERED: Dexamethasone 10 MG/ML SDV IVPUSH ONE (02:03)
--- NOTE | 2020-08-28 02:13 | EDM.PDOC ---
ED HPI GENERAL MEDICAL PROBLEM - General Chief Complaint: Respiratory Problem Stated Complaint: SHORTNESS OF BREATH Time Seen by Provider: 08/28/20 01:51 - History of Present Illness INITIAL COMMENTS - FREE TEXT/NARRATIVE: HISTORY AND PHYSICAL: History of present illness: This is a 20-year-old female who presents ER today complaining of shortness of breath and cough that has been persistent for the last several days. Patient has been seen here in the ER 3 times prior and has required 1 admission to the hospital for shortness of breath, hypoxia, tachycardia. Patient has had to test for coronavirus during the last 4 days, a CT scan that revealed an x-ray compatible with an atypical/viral pneumonia. During her admission she was started on antibiotics and was discharged home on cefdinir, Zithromax, Tessalon Perles and albuterol MDI. Patient reports that when she left the hospital 2 days ago she was feeling improved however over the course of the last 2 days she has progressively gotten worse. I did see the patient in the ER approximately 2 days ago and after being treated with albuterol she did feel slightly improved and was discharged home with instructed to return if she started feeling more short of breath. Patient returns to the ER today because her pulse oximeter was running in the 60s while she was feeling more and more short of breath. Patient reports that yesterday she had a temperature of 104. She reports that she took a Tylenol and a shower and after approximate 1 hour her fever defervesced to 101. Patient reports that she is been nauseous with decreased appetite. Patient denies any vomiting although she does have had some posttussive emesis. Patient reports she is had a nonproductive cough resulting in chest discomfort. Patient denies any diarrhea and had decreased amount of bowel movements over the last couple days. Patient denies any dysuria, frequency, urgency. Patient denies any abdominal pain. Patient denies any lower extremity edema. Patient reports that she has gained approximately 150 pounds over the last 2 years. She reports that she has been trying to work out and diet and try to lose weight. Patient denies any usage of [id number] or prescription medications for weight loss. Patient denies any tobacco alcohol or drugs. In reviewing patient's records the patient has been tachycardic during her admission however her tachycardia did resolve prior to discharge. When she was seen by me 2 days ago, she was tachycardic to 130 on arrival however prior to discharge patient's pulse ox varied between 105 to 120 bpm. Patient has had TSH levels that were normal x2. Patient's EKG did reveal sinus tachycardia. Patient has had Covid, influenza A, influenza B x2 on August 18 as well as August 23 here in the ED. Review of systems: As per history of present illness and below otherwise all systems reviewed and negative. Past medical history: As per history of present illness and as reviewed below otherwise noncontributory. Surgical history: As per history of present illness and as reviewed below otherwise noncontributory. Social history: No reported history of drug or alcohol abuse. Family history: As per history of present illness and as reviewed below otherwise noncontributory. Physical exam: Constitutional: Patient is oriented to person, place, and time. Appears well- developed and well-nourished. No distress. HEENT: Moist mucous membranes Head: Normocephalic and atraumatic Eyes: Right eye exhibits no discharge. Left eye exhibits no discharge. No scleral icterus Neck: Normal range of motion. No tracheal deviation present. Cardiovascular: Normal rate and regular rhythm. Pulmonary: Effort normal, no respiratory distress. Abdominal: No distention Musculoskeletal: Normal range of motion Neurologic: Alert and oriented to person, place and time. Skin: [place], warm and dry. Psychiatric: Normal mood and affect. Behavior is normal. Judgment and thought content normal. Nursing note and vital signs have been reviewed This patient was seen and evaluated during the 2019 SARS-CoV-2 novel coronavirus pandemic period. Community viral transmission is ongoing at time of this encounter and the emergency department is operating under pandemic response procedures. Diffuse mild expiratory wheezing. Patient has paroxysmal coughing with deep inspiration. Diagnostics: [] Therapeutics: [] Assessment and plan: This is a 20-year-old female who has had several ER visits as well as admission to the hospital secondary to shortness of breath, tachycardia, coughing over the last several days. Patient's work-ups have been unremarkable except for a CT scan that did show inflammatory changes that were consistent with viral pneumonia. This could also be consistent with Covid pneumonia however patient has had 2 Covid test that have both been negative. Patient returns to the ED today as instructed secondary to recurrence of her shortness of breath. At home she reports that her pulse oximeter was reading in the 60s and got concerned and came to the ER. Upon arrival to the ER, the patient's pulse ox was 86 to 88% on room air. Patient's heart rate is persistently at 125 to 130 bpm. Patient is tachypneic but is able to speak in full sentences and does not appear to be in any severe respiratory distress. The etiology of this patient's symptoms are unclear however it is most likely related to a viral pneumonia or inflammatory changes in the lungs resulting in hypoxia and tachycardia. Patient has had cultures drawn during her last visit and is currently taking her cefdinir and Zithromax that was prescribed to her prior to discharge from the hospital during her admission. In the ED today, given patient's persistent symptoms, patient will have basic labs drawn including a CBC and a CMP. We will check a BNP. Patient will have a EKG performed. I do not see the utility for repeat TSH. Patient will have a repeat CTA of her chest to compare inflammatory changes from her prior CT scan. I will also repeat coronavirus, influenza A and influenza B test on her. Although unlikely, it is possible that she might of had false negative tests prior. We will obtain an ABG on room air of the patient. We will give the patient Decadron and start the patient on DuoNeb treatments and reevaluate patient's respiratory status while on oxygen. Given patient's hypoxia And her persistent symptoms I feel the patient would benefit from admission to the hospital for further evaluation and management. Case discussed with Dr. Rocha who agrees with plan for admission. Patient will be given dose of Levaquin 750 mg IV in the ED. Patient reports that she has been compliant and she has been taking her antibiotics daily. At this time, unclear as to the utility of blood cultures. Patient be given IV fluids x3 L. Critical Care: The high probability of sudden, clinically significant deterioration in the patient's condition required the highest level of my preparedness to intervene urgently. The services I provided to this patient were to treat and/or prevent clinically significant deterioration. Services included the following: chart data review, reviewing nursing notes and/or old charts, documentation time, sales consultant insurance collaboration regarding findings and treatment options, medication orders and management, direct patient care, vital sign assessments and ordering, interpreting and reviewing diagnostic studies/lab tests. Aggregate critical care time includes only time during which I was engaged inwork directly related to the patient's care, as described above, whether at the bedside or elsewhere in the Emergency Department. It did not include time spent performing other reported procedures or the services of residents, students, nurses or physician assistants. Critical Care Time: 35 minutes Definitive disposition and diagnosis as appropriate pending reevaluation and review of above. - Related Data Allergies Allergy/AdvReac Type Severity Reaction Status Date / Time codeine Allergy Itching Verified 08/28/20 06:33 [From Tylenol-Codeine #3] Home Meds: Home Meds Albuterol Sulfate [Albuterol Sulfate HFA] 1 puff INH Q4H PRN #1 inhaler 08/25/20 [Rx] Azithromycin 500 mg PO DAILY #5 tablet 08/25/20 [Rx] Benzonatate [Tessalon Perle] 100 mg PO TID PRN #30 capsule 08/25/20 [Rx] Cefdinir 300 mg PO BID #10 capsule 08/25/20 [Rx] Past Medical History Psychiatric History: Reports: Anxiety - Infectious Disease History Infectious Disease History: Reports: Shingles - Past Surgical History HEENT Surgical History: Reports: Tonsillectomy GI Surgical History: Reports: Appendectomy Social & Family History - Family History Family Medical History: No Pertinent Family History - Tobacco Use Tobacco Use Status *Q: Never Tobacco User - Caffeine Use Caffeine Use: Reports: None - Recreational Drug Use Recreational Drug Use: Yes Recreational Drug Type: Reports: Marijuana/Hashish Recreational Drug Use Frequency: Not Used In Over 4 Months ED ROS GENERAL - Review of Systems Review Of Systems: See Below ED EXAM, GENERAL - Physical Exam Exam: See Below Course - Vital Signs Last Recorded V/S: Last Vital Signs Temp 98.2 F 08/30/20 04:00 Pulse 86 08/30/20 04:00 Resp 19 08/30/20 04:00 BP 125/70 08/30/20 04:00 Pulse Ox 96 08/30/20 04:00 - Orders/Labs/Meds Orders: Medication Orders Acetaminophen (Tylenol) 650 mg PO Q4H PRN PRN Reason: Pain (Mild 1-3)/fever Last Admin: 08/28/20 10:01 Dose: 650 mg Documented by: RAMYA Albuterol/Ipratropium (Combivent Respimat) 0 gm INH Q4H MAGGIE Last Admin: 08/30/20 05:48 Dose: 1 puff Documented by: Admin: 08/30/20 02:10 Dose: 1 puff Documented by: Admin: 08/29/20 21:04 Dose: 1 puff Documented by: Admin: 08/29/20 18:14 Dose: 1 puff Documented by: Admin: 08/29/20 13:31 Dose: 1 puff Documented by: Admin: 08/29/20 09:14 Dose: 1 puff Documented by: Admin: 08/29/20 06:00 Dose: 1 puff Documented by: Admin: 08/29/20 01:59 Dose: 1 puff Documented by: Admin: 08/29/20 00:31 Dose: Not Given Documented by: Admin: 08/28/20 20:56 Dose: 1 canister Documented by: Admin: 08/28/20 17:23 Dose: 1 canister Documented by: Admin: 08/28/20 13:33 Dose: 1 canister Documented by: Admin: 08/28/20 09:18 Dose: 1 canister Documented by: JAMIE Benzonatate (Tessalon Perles) 100 mg PO TID PRN PRN Reason: Cough Last Admin: 08/28/20 17:29 Dose: 100 mg Documented by: MARIA TERESA Enoxaparin Sodium (Lovenox) 40 mg SUBCUT Q24H [facility] Last Admin: 08/30/20 06:44 Dose: 40 mg Documented by: Admin: 08/29/20 06:41 Dose: 40 mg Documented by: Admin: 08/28/20 11:00 Dose: 40 mg Documented by: RAMYA Sodium Chloride (Normal Saline) 500 mls @ 999 mls/hr IV .BOLUS [facility] Last Admin: 08/28/20 10:05 Dose: 999 mls/hr Documented by: RAMYA Levofloxacin/Dextrose 750 mg/ (Premix) 150 mls @ 100 mls/hr IV Q24H [facility] Last Admin: 08/30/20 04:47 Dose: 100 mls/hr Documented by: Infusion: 08/29/20 06:37 Dose: 100 mls/hr Documented by: Admin: 08/29/20 05:07 Dose: 100 mls/hr Documented by: LIBERTY Ondansetron HCl (Zofran) 4 mg IVPUSH Q4H PRN PRN Reason: Nausea Pantoprazole Sodium (Protonix) 40 mg PO DAILY [facility] Last Admin: 08/29/20 08:35 Dose: 40 mg Documented by: Admin: 08/28/20 10:04 Dose: 40 mg Documented by: RAMYA Sodium Chloride (Saline Flush) 10 ml FLUSH ASDIRECTED PRN PRN Reason: Keep Vein Open Last Admin: 08/28/20 02:54 Dose: 10 ml Documented by: AVINASH Sodium Chloride (Saline Flush) 2.5 ml FLUSH ASDIRECTED PRN PRN Reason: Keep Vein Open Last Admin: 08/28/20 11:02 Dose: 2.5 ml Documented by: Admin: 08/28/20 02:54 Dose: 2.5 ml Documented by: AVINASH Labs: Laboratory Tests 08/28/20 08/28/20 08/28/20 Range/Units 02:32 03:08 03:12 WBC 15.98 H (4.0-11.0) K/uL RBC 5.35 (4.30-5.90) M/uL Hgb 13.8 (12.0-16.0) g/dL Hct 43.2 (36.0-46.0) % MCV 80.7 (80.0-98.0) fL MCH 25.8 L (27.0-32.0) pg MCHC 31.9 (31.0-37.0) g/dL RDW Std Deviation 44.5 (28.0-62.0) fl RDW Coeff of Maura 15 (11.0-15.0) % Plt Count 365 (150-400) K/uL MPV 10.40 (7.40-12.00) fL Neut % (Auto) 79.2 (48.0-80.0) % Lymph % (Auto) 12.4 L (16.0-40.0) % [place] % (Auto) 7.1 (0.0-15.0) % Eos % (Auto) 1.0 (0.0-7.0) % Baso % (Auto) 0.3 (0.0-1.5) % Neut # (Auto) 12.7 H (1.4-5.7) K/uL Lymph # (Auto) 2.0 (0.6-2.4) K/uL [place] # (Auto) 1.1 H (0.0-0.8) K/uL Eos # (Auto) 0.2 (0.0-0.7) K/uL Baso # (Auto) 0.1 (0.0-0.1) K/uL Nucleated RBC % 0.0 /100WBC Nucleated RBCs # 0 K/uL ABG pH 7.463 H (7.35-7.45) ABG pCO2 30 L (35-45) mmHG ABG pO2 56 L (75-100) mmHG ABG HCO3 21 L (22-26) mEq/L ABG Total CO2 18.8 ABG Base Excess -1.5 (-2.0-2.0) Sodium (136-145) mmol/L Potassium (3.5-5.1) mmol/L Chloride (98-107) mmol/L Carbon Dioxide (21.0-32.0) mmol/L BUN (7.0-18.0) mg/dL Creatinine (0.6-1.0) mg/dL Est Cr Clr Drug Dosing mL/min Estimated GFR (MDRD) ml/min Glucose (74-106) mg/dL Calcium (8.5-10.1) mg/dL Total Bilirubin (0.2-1.0) mg/dL AST (15-37) IU/L ALT (14-63) IU/L Alkaline Phosphatase (46-116) U/L Troponin I (0.000-0.056) ng/mL B-Natriuretic Peptide (<100) PG/ML Total Protein (6.4-8.2) g/dL Albumin (3.4-5.0) g/dL Globulin (2.6-4.0) g/dL Albumin/Globulin Ratio (0.9-1.6) Influenza Type A RNA NEGATIVE (NEGATIVE) RSV RNA (INAAT) NEGATIVE (NEGATIVE) Influenza Type B RNA NEGATIVE (NEGATIVE) SARS-CoV-2 RNA (ODALYS) NEGATIVE (NEGATIVE) 08/28/20 08/28/20 Range/Units 03:12 03:12 WBC (4.0-11.0) K/uL RBC (4.30-5.90) M/uL Hgb (12.0-16.0) g/dL Hct (36.0-46.0) % MCV (80.0-98.0) fL MCH (27.0-32.0) pg MCHC (31.0-37.0) g/dL RDW Std Deviation (28.0-62.0) fl RDW Coeff of Maura (11.0-15.0) % Plt Count (150-400) K/uL MPV (7.40-12.00) fL Neut % (Auto) (48.0-80.0) % Lymph % (Auto) (16.0-40.0) % [place] % (Auto) (0.0-15.0) % Eos % (Auto) (0.0-7.0) % Baso % (Auto) (0.0-1.5) % Neut # (Auto) (1.4-5.7) K/uL Lymph # (Auto) (0.6-2.4) K/uL [place] # (Auto) (0.0-0.8) K/uL Eos # (Auto) (0.0-0.7) K/uL Baso # (Auto) (0.0-0.1) K/uL Nucleated RBC % /100WBC Nucleated RBCs # K/uL ABG pH (7.35-7.45) ABG pCO2 (35-45) mmHG ABG pO2 (75-100) mmHG ABG HCO3 (22-26) mEq/L ABG Total CO2 ABG Base Excess (-2.0-2.0) Sodium 139 (136-145) mmol/L Potassium 3.8 (3.5-5.1) mmol/L Chloride 103 (98-107) mmol/L Carbon Dioxide 21.5 (21.0-32.0) mmol/L BUN 8 (7.0-18.0) mg/dL Creatinine 0.9 (0.6-1.0) mg/dL Est Cr Clr Drug Dosing 99.74 mL/min Estimated GFR (MDRD) > 60.0 ml/min Glucose 109 H (74-106) mg/dL Calcium 9.1 (8.5-10.1) mg/dL Total Bilirubin 0.6 (0.2-1.0) mg/dL AST 22 (15-37) IU/L ALT 32 (14-63) IU/L Alkaline Phosphatase 118 H (46-116) U/L Troponin I < 0.050 (0.000-0.056) ng/mL B-Natriuretic Peptide < 2 (<100) PG/ML Total Protein 8.1 (6.4-8.2) g/dL Albumin 3.7 (3.4-5.0) g/dL Globulin 4.4 H (2.6-4.0) g/dL Albumin/Globulin Ratio 0.8 L (0.9-1.6) Influenza Type A RNA (NEGATIVE) RSV RNA (INAAT) (NEGATIVE) Influenza Type B RNA (NEGATIVE) SARS-CoV-2 RNA (ODALYS) (NEGATIVE) Meds: Medications Generic Name Dose Route Start Last Admin Trade Name Freq PRN Reason Stop Dose Admin Acetaminophen 650 mg 08/28/20 07:15 08/28/20 10:01 Tylenol PO 650 mg Q4H PRN Administration Pain (Mild 1-3)/fever Albuterol/Ipratropium 0 gm 08/28/20 10:00 08/30/20 05:48 Combivent Respimat INH 1 puff Q4H MAGGIE Administration Benzonatate 100 mg 08/28/20 07:18 08/28/20 17:29 Tessalon Perles PO 100 mg TID PRN Administration Cough Enoxaparin Sodium 40 mg 08/28/20 07:15 08/30/20 06:44 Lovenox SUBCUT 40 mg Q24H MAGGIE Administration Sodium Chloride 500 mls @ 999 mls/hr 08/28/20 05:00 08/28/20 10:05 Normal Saline IV 999 mls/hr .BOLUS MAGGIE Administration Levofloxacin/Dextrose 750 mg/ 150 mls @ 100 mls/hr 08/29/20 05:30 08/30/20 04:47 Premix IV 100 mls/hr Q24H MAGIGE Administration Ondansetron HCl 4 mg 08/28/20 07:15 Zofran IVPUSH Q4H PRN Nausea Pantoprazole Sodium 40 mg 08/28/20 09:00 08/29/20 08:35 Protonix PO 40 mg DAILY MAGGIE Administration Sodium Chloride 10 ml 08/28/20 02:03 08/28/20 02:54 Saline Flush FLUSH 10 ml ASDIRECTED PRN Administration Keep Vein Open Sodium Chloride 2.5 ml 08/28/20 02:03 08/28/20 11:02 Saline Flush FLUSH 2.5 ml ASDIRECTED PRN Administration Keep Vein Open Discontinued Medications Generic Name Dose Route Start Last Admin Trade Name Freq PRN Reason Stop Dose Admin Albuterol/Ipratropium 3 ml 08/28/20 02:03 08/28/20 02:55 Duoneb 3.0-0.5 Mg/3 Ml NEB 08/28/20 02:04 Not Given ONETIME ONE Albuterol/Ipratropium 0 gm 08/28/20 06:00 08/28/20 11:01 Combivent Respimat INH Not Given Q4H MAGGIE Dexamethasone 10 mg 08/28/20 02:03 08/28/20 02:54 Decadron IVPUSH 08/28/20 02:04 10 mg ONETIME ONE Administration Sodium Chloride 1,000 mls @ 999 mls/hr 08/28/20 02:03 08/28/20 02:53 Normal Saline IV 08/28/20 03:03 999 mls/hr .Bolus ONE Administration Levofloxacin/Dextrose 750 mg/ 150 mls @ 100 mls/hr 08/28/20 04:51 08/28/20 05:29 Premix IV 08/28/20 06:20 100 mls/hr ONETIME ONE Administration Sodium Chloride 1,000 mls @ 999 mls/hr 08/28/20 05:02 08/28/20 05:31 Normal Saline IV 08/28/20 06:02 999 mls/hr .Bolus ONE Administration Levofloxacin/Dextrose 750 mg/ 150 mls @ 100 mls/hr 08/28/20 07:30 08/28/20 11:01 Premix IV Not Given Q24H MAGGIE Iopamidol 100 ml 08/28/20 04:08 08/28/20 04:09 Isovue Multipack-370 (76%) IVPUSH 08/28/20 04:09 100 ml ONETIME STA Administration Ketorolac Tromethamine 15 mg 08/28/20 02:03 08/28/20 02:53 Toradol IVPUSH 08/28/20 02:04 15 mg ONETIME ONE Administration Levalbuterol HCl Confirm 08/28/20 02:32 08/28/20 02:56 Xopenex Administered 08/28/20 02:33 Not Given Dose 1.25 mg .ROUTE .STK-MED ONE Ondansetron HCl 4 mg 08/28/20 02:03 08/28/20 02:54 Zofran IVPUSH 08/28/20 02:04 4 mg ONETIME ONE Administration Departure - Departure Time of Disposition: 06:53 Disposition: Admitted As Inpatient 65 Condition: Good Clinical Impression: Pneumonia Respiratory failure with hypoxia Qualifiers: Chronicity: acute Qualified Code(s): J96.01 - Acute respiratory failure with hypoxia - Discharge Information Sepsis Event Note (ED) - Evaluation Sepsis Screening Result: Possible Sepsis Risk
[2020-08-28] MEDS ORDERED: Levalbuterol HCl 1.25 MG/0.5 ML Neb ONE (02:32)
[2020-08-28] MEDS: Sodium Chloride 0.9% 2.5 ML Syringe FLUSH PRN ×2 (02:54→11:02)
[2020-08-28 03:43] LABS: BLOOD UREA NITROGEN,BUN 8 mg/dL (7.0-18.0); CARBON DIOXIDE,CO2 21.5 mmol/L (21.0-32.0); CHLORIDE,CL 103 mmol/L (98-107); GLUCOSE RANDOM 109 mg/dL (74-106); POTASSIUM,K 3.8 mmol/L (3.5-5.1); SODIUM,NA 139 mmol/L (136-145)
[2020-08-28 04:05] LABS: CORONAVIRUS COVID-19 NAA NEGATIVE (NEGATIVE); INFLUENZA A NAA NEGATIVE (NEGATIVE); INFLUENZA B NAA NEGATIVE (NEGATIVE); RESPIRATORY SYNCYTIAL VIR NAA NEGATIVE (NEGATIVE)
[2020-08-28] MEDS ORDERED: Iopamidol 755 MG/ML 500 ML Multipack Bottle IVPUSH STA (04:08)
--- NOTE | 2020-08-28 04:33 | CT ---
INDICATION: Shortness of breath and hypoxia TECHNIQUE: Axial images were obtained from the thoracic inlet to the diaphragm. Reformats: Coronal and sagittal IV Contrast: 100 cc Isovue 370 COMPARISON: Chest CTA 08/23/2020 FINDINGS: Mediastinum: No pericardial effusion. Thoracic aorta normal in caliber. Right infrahilar lymph nodes measure up to 14 millimeters. Lungs and Pleural Space: No pleural effusion or pneumothorax. Extensive bilateral ground-glass opacities throughout both lungs, greatest in the lower lobes. Chest wall: No masses. Upper abdomen: Normal. Bones: Unremarkable for age. IMPRESSION: 1. Diffuse ground-glass opacities within both lungs. Appearance would favor a viral pneumonia with differential including pneumonitis. This appears worsened compared to the prior exam. 2. Right infrahilar adenopathy, presumed reactive. Please note that all CT scans at this facility use dose modulation, iterative reconstruction, and/or weight-based dosing when appropriate to reduce radiation dose to as low as reasonably achievable. Dictated by Jericho Costa MD @ Aug 28 2020 4:28AM Signed by Dr. Jericho Costa @ Aug 28 2020 4:32AM
[2020-08-28] MEDS ORDERED: Levofloxacin/Dextrose 5%-Water 750 MG in Premix Bag 1 BAG IV ONE (04:51)
[2020-08-28] MEDS ORDERED: Sodium Chloride 0.9% 500 ML IV SCH (05:00)
[2020-08-28] MEDS ORDERED: Albuterol/Ipratropium 4 GM Inhalation Spray INH SCH (06:00)
[2020-08-28] MEDS ORDERED: Ondansetron 4 MG/2 ML SDV IVPUSH PRN (07:15)
[2020-08-28] MEDS ORDERED: Benzonatate 100 MG Cap PO PRN (07:18)
[2020-08-28] MEDS ORDERED: Levofloxacin/Dextrose 5%-Water 750 MG in Premix Bag 1 BAG IV SCH (07:30)
--- NOTE | 2020-08-28 08:13 | PCM.HP.2 ---
H&P History of Present Illness - General Date of Service: 08/28/20 Admit Problem/Dx: Admission Diagnosis/Problem Admission Diagnosis/Problem Hypoxia Source of Information: Patient History Limitations: Reports: No Limitations - History of Present Illness Initial Comments - Free Text/Narative: 20-year-old female presented complaining of shortness of breath and cough. She has a PMH of anxiety. Patient was discharged from the hospital on 08/25/20 for viral/atypical pneumonia. At that time she was discharged on cefdinir and azithromycin which she has been taking. She notes that since being discharged from the hospital her breathing appeared to get worse and cough did not improve over the past 2 days. She also had fevers, nausea and decreased appetite. She has been monitoring her O2 sat at home and notes that it was in the 60's which prompted her to go to the ER. She has been tested for COVID-19 and influenza multiple times and has been negative. She denies any history of asthma, COPD or frequent lung infections. She recently moved to [place]. She denies any tob acco use, illicit use and alcohol use. She has not had any headache, chest pain, vomiting, abdominal pain, diarrhea, blood in stool, blood in urine, numbness or tingling in extremities. In the ER, WBC 15, 000 and influenza/COVID-19/RSV tests were negative. CT chest showed bilateral ground-glass opacities worsened since prior imaging on 08/23/20. Patient was noted to be tachycardic which she states is normal for her. EKG showed sinus tachycardia with no acute ischemic changes. She was given IV le vaquin, toradol, zofran, xopenox, decadron and IV NS bolus x3. Patient was admitted for further evaluation and treatment. - Related Data Allergies/Adverse Reactions: Allergies Allergy/AdvReac Type Severity Reaction Status Date / Time codeine Allergy Itching Verified 08/28/20 06:33 [From Tylenol-Codeine #3] Home Medications: Home Meds Albuterol Sulfate [Albuterol Sulfate HFA] 1 puff INH Q4H PRN #1 inhaler 08/25/20 [Rx] Azithromycin 500 mg PO DAILY #5 tablet 08/25/20 [Rx] Benzonatate [Tessalon Perle] 100 mg PO TID PRN #30 capsule 08/25/20 [Rx] Cefdinir 300 mg PO BID #10 capsule 08/25/20 [Rx] Past Medical History Psychiatric History: Reports: Anxiety - Infectious Disease History Infectious Disease History: Reports: Shingles - Past Surgical History HEENT Surgical History: Reports: Tonsillectomy GI Surgical History: Reports: Appendectomy Social & Family History - Family History Family Medical History: No Pertinent Family History - Tobacco Use Tobacco Use Status *Q: Never Tobacco User - Caffeine Use Caffeine Use: Reports: None - Recreational Drug Use Recreational Drug Use: No Recreational Drug Type: Reports: Marijuana/Hashish Recreational Drug Use Frequency: Not Used In Over 4 Months H&P Review of Systems - Review of Systems: Review Of Systems: Comprehensive ROS is negative, except as noted in HPI. Exam - Exam Exam: See Below - Vital Signs Vital Signs: Last Vital Signs Temp 36.3 C 08/28/20 07:37 Pulse 103 H 08/28/20 07:37 Resp 20 08/28/20 07:37 BP 148/67 H 08/28/20 07:37 Pulse Ox 90 L 08/28/20 07:37 Weight: 136.2 kg - Exam General: Alert, Oriented, Cooperative, Other (NAD) HEENT: Conjunctiva Clear, EOMI, Hearing Intact, Pupils Equal, Pupils Reactive Neck: Supple, Trachea Midline Lungs: Clear to Auscultation, Rhonchi Cardiovascular: Regular Rhythm, Tachycardia GI/Abdominal Exam: Normal Bowel Sounds, Soft, Non-Tender, No Distention Extremities: Normal Inspection, No Pedal Edema Peripheral Pulses: 2+: Radial (L), Radial (R) Skin: Warm, Dry, Intact Neurological: Cranial Nerves Intact, Strength Equal Bilateral, Normal Speech, Normal Tone Psychiatric: Alert, Normal Affect, Normal Mood - Patient Data Lab Results Last 24 hrs: Laboratory Results - last 24 hr 08/28/20 08/28/20 08/28/20 Range/Units 02:32 03:08 03:12 WBC 15.98 H (4.0-11.0) K/uL RBC 5.35 (4.30-5.90) M/uL Hgb 13.8 (12.0-16.0) g/dL Hct 43.2 (36.0-46.0) % MCV 80.7 (80.0-98.0) fL MCH 25.8 L (27.0-32.0) pg MCHC 31.9 (31.0-37.0) g/dL RDW Std Deviation 44.5 (28.0-62.0) fl RDW Coeff of Maura 15 (11.0-15.0) % Plt Count 365 (150-400) K/uL MPV 10.40 (7.40-12.00) fL Neut % (Auto) 79.2 (48.0-80.0) % Lymph % (Auto) 12.4 L (16.0-40.0) % Boyle % (Auto) 7.1 (0.0-15.0) % Eos % (Auto) 1.0 (0.0-7.0) % Baso % (Auto) 0.3 (0.0-1.5) % Neut # (Auto) 12.7 H (1.4-5.7) K/uL Lymph # (Auto) 2.0 (0.6-2.4) K/uL Boyle # (Auto) 1.1 H (0.0-0.8) K/uL Eos # (Auto) 0.2 (0.0-0.7) K/uL Baso # (Auto) 0.1 (0.0-0.1) K/uL Nucleated RBC % 0.0 /100WBC Nucleated RBCs # 0 K/uL ABG pH 7.463 H (7.35-7.45) ABG pCO2 30 L (35-45) mmHG ABG pO2 56 L (75-100) mmHG ABG HCO3 21 L (22-26) mEq/L ABG Total CO2 18.8 ABG Base Excess -1.5 (-2.0-2.0) Sodium (136-145) mmol/L Potassium (3.5-5.1) mmol/L Chloride (98-107) mmol/L Carbon Dioxide (21.0-32.0) mmol/L BUN (7.0-18.0) mg/dL Creatinine (0.6-1.0) mg/dL Est Cr Clr Drug Dosing mL/min Estimated GFR (MDRD) ml/min Glucose (74-106) mg/dL Calcium (8.5-10.1) mg/dL Total Bilirubin (0.2-1.0) mg/dL AST (15-37) IU/L ALT (14-63) IU/L Alkaline Phosphatase (46-116) U/L Troponin I (0.000-0.056) ng/mL B-Natriuretic Peptide (<100) PG/ML Total Protein (6.4-8.2) g/dL Albumin (3.4-5.0) g/dL Globulin (2.6-4.0) g/dL Albumin/Globulin Ratio (0.9-1.6) Influenza Type A RNA NEGATIVE (NEGATIVE) RSV RNA (INAAT) NEGATIVE (NEGATIVE) Influenza Type B RNA NEGATIVE (NEGATIVE) SARS-CoV-2 RNA (ODALYS) NEGATIVE (NEGATIVE) 08/28/20 08/28/20 Range/Units 03:12 03:12 WBC (4.0-11.0) K/uL RBC (4.30-5.90) M/uL Hgb (12.0-16.0) g/dL Hct (36.0-46.0) % MCV (80.0-98.0) fL MCH (27.0-32.0) pg MCHC (31.0-37.0) g/dL RDW Std Deviation (28.0-62.0) fl RDW Coeff of Maura (11.0-15.0) % Plt Count (150-400) K/uL MPV (7.40-12.00) fL Neut % (Auto) (48.0-80.0) % Lymph % (Auto) (16.0-40.0) % Boyle % (Auto) (0.0-15.0) % Eos % (Auto) (0.0-7.0) % Baso % (Auto) (0.0-1.5) % Neut # (Auto) (1.4-5.7) K/uL Lymph # (Auto) (0.6-2.4) K/uL Boyle # (Auto) (0.0-0.8) K/uL Eos # (Auto) (0.0-0.7) K/uL Baso # (Auto) (0.0-0.1) K/uL Nucleated RBC % /100WBC Nucleated RBCs # K/uL ABG pH (7.35-7.45) ABG pCO2 (35-45) mmHG ABG pO2 (75-100) mmHG ABG HCO3 (22-26) mEq/L ABG Total CO2 ABG Base Excess (-2.0-2.0) Sodium 139 (136-145) mmol/L Potassium 3.8 (3.5-5.1) mmol/L Chloride 103 (98-107) mmol/L Carbon Dioxide 21.5 (21.0-32.0) mmol/L BUN 8 (7.0-18.0) mg/dL Creatinine 0.9 (0.6-1.0) mg/dL Est Cr Clr Drug Dosing 99.74 mL/min Estimated GFR (MDRD) > 60.0 ml/min Glucose 109 H (74-106) mg/dL Calcium 9.1 (8.5-10.1) mg/dL Total Bilirubin 0.6 (0.2-1.0) mg/dL AST 22 (15-37) IU/L ALT 32 (14-63) IU/L Alkaline Phosphatase 118 H (46-116) U/L Troponin I < 0.050 (0.000-0.056) ng/mL B-Natriuretic Peptide < 2 (<100) PG/ML Total Protein 8.1 (6.4-8.2) g/dL Albumin 3.7 (3.4-5.0) g/dL Globulin 4.4 H (2.6-4.0) g/dL Albumin/Globulin Ratio 0.8 L (0.9-1.6) Influenza Type A RNA (NEGATIVE) RSV RNA (INAAT) (NEGATIVE) Influenza Type B RNA (NEGATIVE) SARS-CoV-2 RNA (ODALYS) (NEGATIVE) Result Diagrams: 08/28/20 03:12 08/28/20 03:12 Sepsis Event Note - Evaluation Sepsis Screening Result: Sepsis Risk - Focused Exam Vital Signs: Vital Signs Temp Pulse Resp BP Pulse Ox 08/28/20 07:37 36.3 C 103 H 20 148/67 H 90 L 08/28/20 06:18 35.8 C L 100 20 135/74 93 L 08/28/20 04:44 96 134/69 93 L 08/28/20 04:18 102 H 123/68 93 L 08/28/20 03:39 117 H 20 122/77 08/28/20 02:30 128 H 92 L 08/28/20 02:03 86 L 08/28/20 01:56 36.3 C 133 H 24 H 139/73 91 L - Problem List (1) CAP (community acquired pneumonia) SNOMED Code(s): 236121330 ICD Code: J18.9 - PNEUMONIA, UNSPECIFIED ORGANISM Status: Acute Current Visit: No Qualifiers: Laterality: unspecified laterality Qualified Code(s): J18.9 - Pneumonia, unspecified organism (2) Viral pneumonia SNOMED Code(s): 74695084 ICD Code: J12.9 - VIRAL PNEUMONIA, UNSPECIFIED Status: Acute Current Visit: No (3) Anxiety SNOMED Code(s): 20260650 ICD Code: F41.9 - ANXIETY DISORDER, UNSPECIFIED Status: Acute Current Visit: Yes (4) Tachycardia SNOMED Code(s): 9162034 ICD Code: R00.0 - TACHYCARDIA, UNSPECIFIED Status: Acute Current Visit: No Problem List Initiated/Reviewed/Updated: Yes Orders Last 24hrs: Active Orders 24 hr Category Date Time Status Patient Status [ADT] Routine ADT 08/28/20 05:00 Active Flutter Valve Therapy [RT Chest Physiotherapy] [RC] Care 08/28/20 07:16 Active ASDIRECTED Oxygen Therapy [RC] PRN Care 08/28/20 07:15 Active RT Incentive Spirometry [RC] ASDIRECTED Care 08/28/20 07:16 Active RT Post Treatment Assessment [RC] Click to Edit Care 08/28/20 07:16 Active RT Pre-Treatment Assessment [RC] Click to Edit Care 08/28/20 07:16 Active Telemetry Monitoring [Cardiac Monitoring] [RC] . Care 08/28/20 05:24 Active DIRECTED Telemetry Monitoring [Cardiac Monitoring] [RC] Q8H Care 08/28/20 07:18 Active Up ad Yanet [RC] ASDIRECTED Care 08/28/20 07:15 Active VTE/DVT Education [RC] PER UNIT ROUTINE Care 08/28/20 07:15 Active Vital Signs [RC] Q4H Care 08/28/20 07:15 Active Regular Diet [DIET] Diet 08/28/20 Breakfast Active CBC WITH AUTO DIFF [HEME] AM Lab 08/29/20 05:11 Ordered COMPREHENSIVE METABOLIC PN,CMP [CHEM] AM Lab 08/29/20 05:11 Ordered CULTURE BLOOD [BC] Stat Lab 08/28/20 05:03 Received CULTURE BLOOD [BC] Stat Lab 08/28/20 05:13 Received Acetaminophen [TylenoL] Med 08/28/20 07:15 Active 650 mg PO Q4H PRN Albuterol/Ipratropium [Combivent Respimat] Med 08/28/20 06:00 Active See Dose Instructions INH Q4H Benzonatate [Tessalon Perles] Med 08/28/20 07:18 Active 100 mg PO TID PRN Enoxaparin [Lovenox] Med 08/28/20 07:15 Active 40 mg SUBCUT Q24H Levofloxacin/Dextrose 5%-Water [Levaquin in D5W 750 MG/ Med 08/28/20 07:30 Active 150 ML] 750 mg Premix Bag 1 bag IV Q24H Ondansetron [Zofran] Med 08/28/20 07:15 Active 4 mg IVPUSH Q4H PRN Pantoprazole [ProTONIX] Med 08/28/20 09:00 Active 40 mg PO DAILY Sodium Chloride 0.9% [Normal Saline] 500 ml Med 08/28/20 05:00 Active IV .BOLUS Sodium Chloride 0.9% [Saline Flush] Med 08/28/20 02:03 Active 10 ml FLUSH ASDIRECTED PRN Sodium Chloride 0.9% [Saline Flush] Med 08/28/20 02:03 Active 2.5 ml FLUSH ASDIRECTED PRN Blood Culture x2 Reflex Set [OM.PC] Stat Oth 08/28/20 04:59 Ordered Saline Lock Insert [OM.PC] Urgent Oth 08/28/20 02:03 Ordered Resuscitation Status Routine Resus Stat 08/28/20 07:15 Ordered Medication Orders Acetaminophen (Tylenol) 650 mg PO Q4H PRN PRN Reason: Pain (Mild 1-3)/fever Albuterol/Ipratropium (Combivent Respimat) 0 gm INH Q4H MAGGIE Benzonatate (Tessalon Perles) 100 mg PO TID PRN PRN Reason: Cough Enoxaparin Sodium (Lovenox) 40 mg SUBCUT Q24H MAGGIE Sodium Chloride (Normal Saline) 500 mls @ 999 mls/hr IV .BOLUS MAGGIE Levofloxacin/Dextrose 750 mg/ (Premix) 150 mls @ 100 mls/hr IV Q24H MAGGIE Ondansetron HCl (Zofran) 4 mg IVPUSH Q4H PRN PRN Reason: Nausea Pantoprazole Sodium (Protonix) 40 mg PO DAILY MAGGIE Sodium Chloride (Saline Flush) 10 ml FLUSH ASDIRECTED PRN PRN Reason: Keep Vein Open Last Admin: 08/28/20 02:54 Dose: 10 ml Documented by: AVINASH Sodium Chloride (Saline Flush) 2.5 ml FLUSH ASDIRECTED PRN PRN Reason: Keep Vein Open Last Admin: 08/28/20 02:54 Dose: 2.5 ml Documented by: AVINASH Assessment/Plan Comment:: Assessment and Plan: 1. Vital Pneumonia vs Community-acquired pneumonia: - Admit to med/surg. Patient received IV NS boluses in ER. Continue supplemental oxygen prn, combivent q4 MAGGIE, IV levaquin, encourage incentive spirometer use and flutter valve. Blood cultures pending. Unable to obtain lactate as machine is not operable at this time. - CT chest showed bilateral ground-glass opacities worsened since prior imaging on 08/23/20. - COVID-19/influenza/RSV tests were negative. 2. Sinus tachycardia: - Patient on telemetry. - EKG showed sinus tachycardia with no acute ischemic changes. 3. DVT prophylaxis: - Lovenox 40 mg qd.
[2020-08-28] MEDS: Albuterol/Ipratropium 4 GM Inhalation Spray INH SCH ×4 (09:18→20:56)
[2020-08-28] MEDS: Acetaminophen 325 MG Tab PO PRN (10:01)
[2020-08-28] MEDS: Pantoprazole 40 MG Tab.CR PO SCH (10:04)
[2020-08-28] MEDS: Enoxaparin 40 MG/0.4 ML Syringe SUBCUT SCH (11:00)
[2020-08-29] MEDS: Albuterol/Ipratropium 4 GM Inhalation Spray INH SCH ×7 (00:31→21:04)
[2020-08-29] MEDS: Levofloxacin/Dextrose 5%-Water 750 MG in Premix Bag 1 BAG IV SCH (05:07)
[2020-08-29] MEDS: Enoxaparin 40 MG/0.4 ML Syringe SUBCUT SCH (06:41)
[2020-08-29 06:50] LABS: BLOOD UREA NITROGEN,BUN 12 mg/dL (7.0-18.0); CARBON DIOXIDE,CO2 25.1 mmol/L (21.0-32.0); CHLORIDE,CL 107 mmol/L (98-107); GLUCOSE RANDOM 102 mg/dL (74-106); POTASSIUM,K 4.3 mmol/L (3.5-5.1); SODIUM,NA 143 mmol/L (136-145)
[2020-08-29] MEDS: Pantoprazole 40 MG Tab.CR PO SCH (08:35)
--- NOTE | 2020-08-29 12:01 | PCM.PN ---
- General Info Date of Service: 08/29/20 - Review of Systems Systems Review Comment:: reports breathing much betters, no longer having pain on inspiration. - Patient Data Vitals - Most Recent: Last Vital Signs Temp 36.2 C 08/29/20 08:23 Pulse 90 08/29/20 08:23 Resp 16 08/29/20 08:23 BP 109/80 08/29/20 08:23 Pulse Ox 94 L 08/29/20 08:25 Weight - Most Recent: 136.2 kg I&O - Last 24 Hours: Intake & Output 08/28/20 08/29/20 08/29/20 22:59 06:59 14:59 Intake Total 620 1400 180 Output Total 600 Balance 20 1400 180 Lab Results Last 24 Hours: Laboratory Results - last 24 hr 08/29/20 08/29/20 Range/Units 05:58 05:58 WBC 14.55 H (4.0-11.0) K/uL RBC 5.03 (4.30-5.90) M/uL Hgb 12.7 (12.0-16.0) g/dL Hct 40.8 (36.0-46.0) % MCV 81.1 (80.0-98.0) fL MCH 25.2 L (27.0-32.0) pg MCHC 31.1 (31.0-37.0) g/dL RDW Std Deviation 44.6 (28.0-62.0) fl RDW Coeff of Maura 15 (11.0-15.0) % Plt Count 327 (150-400) K/uL MPV 10.80 (7.40-12.00) fL Neut % (Auto) 65.0 (48.0-80.0) % Lymph % (Auto) 24.7 (16.0-40.0) % [place] % (Auto) 8.7 (0.0-15.0) % Eos % (Auto) 1.3 (0.0-7.0) % Baso % (Auto) 0.3 (0.0-1.5) % Neut # (Auto) 9.5 H (1.4-5.7) K/uL Lymph # (Auto) 3.6 H (0.6-2.4) K/uL Licking # (Auto) 1.3 H (0.0-0.8) K/uL Eos # (Auto) 0.2 (0.0-0.7) K/uL Baso # (Auto) 0.0 (0.0-0.1) K/uL Nucleated RBC % 0.0 /100WBC Nucleated RBCs # 0 K/uL Sodium 143 (136-145) mmol/L Potassium 4.3 (3.5-5.1) mmol/L Chloride 107 (98-107) mmol/L Carbon Dioxide 25.1 (21.0-32.0) mmol/L BUN 12 (7.0-18.0) mg/dL Creatinine 0.9 (0.6-1.0) mg/dL Est Cr Clr Drug Dosing 100.14 mL/min Estimated GFR (MDRD) > 60.0 ml/min Glucose 102 (74-106) mg/dL Calcium 8.5 (8.5-10.1) mg/dL Total Bilirubin 0.3 (0.2-1.0) mg/dL AST 14 L (15-37) IU/L ALT 28 (14-63) IU/L Alkaline Phosphatase 107 (46-116) U/L Total Protein 6.7 (6.4-8.2) g/dL Albumin 3.2 L (3.4-5.0) g/dL Globulin 3.5 (2.6-4.0) g/dL Albumin/Globulin Ratio 0.9 (0.9-1.6) Daryl Results Last 24 Hours: Microbiology 08/28/20 05:13 Aerobic Blood Culture - Preliminary Blood - Venous - Lab Draw NO GROWTH AFTER 1 DAY Anaerobic Blood Culture - Preliminary NO GROWTH AFTER 1 DAY 08/28/20 05:03 Aerobic Blood Culture - Preliminary Blood - Venous NO GROWTH AFTER 1 DAY Anaerobic Blood Culture - Preliminary NO GROWTH AFTER 1 DAY Med Orders - Current: Current Medications Acetaminophen (Tylenol) 650 mg PO Q4H PRN PRN Reason: Pain (Mild 1-3)/fever Last Admin: 08/28/20 10:01 Dose: 650 mg Documented by: Albuterol/Ipratropium (Combivent Respimat) 0 gm INH Q4H MAGGIE Last Admin: 08/29/20 09:14 Dose: 1 puff Documented by: Benzonatate (Tessalon Perles) 100 mg PO TID PRN PRN Reason: Cough Last Admin: 08/28/20 17:29 Dose: 100 mg Documented by: Enoxaparin Sodium (Lovenox) 40 mg SUBCUT Q24H [facility] Last Admin: 08/29/20 06:41 Dose: 40 mg Documented by: Sodium Chloride (Normal Saline) 500 mls @ 999 mls/hr IV .BOLUS [facility] Last Admin: 08/28/20 10:05 Dose: 999 mls/hr Documented by: Levofloxacin/Dextrose 750 mg/ (Premix) 150 mls @ 100 mls/hr IV Q24H [facility] Last Admin: 08/29/20 05:07 Dose: 100 mls/hr Documented by: Ondansetron HCl (Zofran) 4 mg IVPUSH Q4H PRN PRN Reason: Nausea Pantoprazole Sodium (Protonix) 40 mg PO DAILY [facility] Last Admin: 08/29/20 08:35 Dose: 40 mg Documented by: Sodium Chloride (Saline Flush) 10 ml FLUSH ASDIRECTED PRN PRN Reason: Keep Vein Open Last Admin: 08/28/20 02:54 Dose: 10 ml Documented by: Sodium Chloride (Saline Flush) 2.5 ml FLUSH ASDIRECTED PRN PRN Reason: Keep Vein Open Last Admin: 08/28/20 11:02 Dose: 2.5 ml Documented by: Discontinued Medications Albuterol/Ipratropium (Duoneb 3.0-0.5 Mg/3 Ml) 3 ml NEB ONETIME ONE Stop: 08/28/20 02:04 Last Admin: 08/28/20 02:55 Dose: Not Given Documented by: Albuterol/Ipratropium (Combivent Respimat) 0 gm INH Q4H [facility] Last Admin: 08/28/20 11:01 Dose: Not Given Documented by: Dexamethasone (Decadron) 10 mg IVPUSH ONETIME ONE Stop: 08/28/20 02:04 Last Admin: 08/28/20 02:54 Dose: 10 mg Documented by: Sodium Chloride (Normal Saline) 1,000 mls @ 999 mls/hr IV .Bolus ONE Stop: 08/28/20 03:03 Last Admin: 08/28/20 02:53 Dose: 999 mls/hr Documented by: Levofloxacin/Dextrose 750 mg/ (Premix) 150 mls @ 100 mls/hr IV ONETIME ONE Stop: 08/28/20 06:20 Last Admin: 08/28/20 05:29 Dose: 100 mls/hr Documented by: Sodium Chloride (Normal Saline) 1,000 mls @ 999 mls/hr IV .Bolus ONE Stop: 08/28/20 06:02 Last Admin: 08/28/20 05:31 Dose: 999 mls/hr Documented by: Levofloxacin/Dextrose 750 mg/ (Premix) 150 mls @ 100 mls/hr IV Q24H MAGGIE Last Admin: 08/28/20 11:01 Dose: Not Given Documented by: Iopamidol (Isovue Multipack-370 (76%)) 100 ml IVPUSH ONETIME STA Stop: 08/28/20 04:09 Last Admin: 08/28/20 04:09 Dose: 100 ml Documented by: Ketorolac Tromethamine (Toradol) 15 mg IVPUSH ONETIME ONE Stop: 08/28/20 02:04 Last Admin: 08/28/20 02:53 Dose: 15 mg Documented by: Levalbuterol HCl (Xopenex) Confirm Administered Dose 1.25 mg .ROUTE .STK-MED ONE Stop: 08/28/20 02:33 Last Admin: 08/28/20 02:56 Dose: Not Given Documented by: Ondansetron HCl (Zofran) 4 mg IVPUSH ONETIME ONE Stop: 08/28/20 02:04 Last Admin: 08/28/20 02:54 Dose: 4 mg Documented by: - Exam General: Alert, Oriented Neck: Supple Lungs: Clear to Auscultation, Normal Respiratory Effort Cardiovascular: Regular Rate, Regular Rhythm Extremities: Non-Tender, No Pedal Edema Skin: Warm, Dry, Intact - Patient Data Lab Results Last 24 hrs: Laboratory Results - last 24 hr 08/29/20 08/29/20 Range/Units 05:58 05:58 WBC 14.55 H (4.0-11.0) K/uL RBC 5.03 (4.30-5.90) M/uL Hgb 12.7 (12.0-16.0) g/dL Hct 40.8 (36.0-46.0) % MCV 81.1 (80.0-98.0) fL MCH 25.2 L (27.0-32.0) pg MCHC 31.1 (31.0-37.0) g/dL RDW Std Deviation 44.6 (28.0-62.0) fl RDW Coeff of Maura 15 (11.0-15.0) % Plt Count 327 (150-400) K/uL MPV 10.80 (7.40-12.00) fL Neut % (Auto) 65.0 (48.0-80.0) % Lymph % (Auto) 24.7 (16.0-40.0) % [place] % (Auto) 8.7 (0.0-15.0) % Eos % (Auto) 1.3 (0.0-7.0) % Baso % (Auto) 0.3 (0.0-1.5) % Neut # (Auto) 9.5 H (1.4-5.7) K/uL Lymph # (Auto) 3.6 H (0.6-2.4) K/uL [place] # (Auto) 1.3 H (0.0-0.8) K/uL Eos # (Auto) 0.2 (0.0-0.7) K/uL Baso # (Auto) 0.0 (0.0-0.1) K/uL Nucleated RBC % 0.0 /100WBC Nucleated RBCs # 0 K/uL Sodium 143 (136-145) mmol/L Potassium 4.3 (3.5-5.1) mmol/L Chloride 107 (98-107) mmol/L Carbon Dioxide 25.1 (21.0-32.0) mmol/L BUN 12 (7.0-18.0) mg/dL Creatinine 0.9 (0.6-1.0) mg/dL Est Cr Clr Drug Dosing 100.14 mL/min Estimated GFR (MDRD) > 60.0 ml/min Glucose 102 (74-106) mg/dL Calcium 8.5 (8.5-10.1) mg/dL Total Bilirubin 0.3 (0.2-1.0) mg/dL AST 14 L (15-37) IU/L ALT 28 (14-63) IU/L Alkaline Phosphatase 107 (46-116) U/L Total Protein 6.7 (6.4-8.2) g/dL Albumin 3.2 L (3.4-5.0) g/dL Globulin 3.5 (2.6-4.0) g/dL Albumin/Globulin Ratio 0.9 (0.9-1.6) Result Diagrams: 08/29/20 05:58 08/29/20 05:58 Daryl Results Last 24 hrs: Microbiology 08/28/20 05:13 Aerobic Blood Culture - Preliminary Blood - Venous - Lab Draw NO GROWTH AFTER 1 DAY Anaerobic Blood Culture - Preliminary NO GROWTH AFTER 1 DAY 08/28/20 05:03 Aerobic Blood Culture - Preliminary Blood - Venous NO GROWTH AFTER 1 DAY Anaerobic Blood Culture - Preliminary NO GROWTH AFTER 1 DAY Sepsis Event Note - Evaluation Sepsis Screening Result: No Definite Risk - Focused Exam Vital Signs: Vital Signs Temp Pulse Resp BP BP Pulse Ox Pulse Ox 08/29/20 08:25 94 L 08/29/20 08:23 36.2 C 90 16 109/80 94 L 08/29/20 04:00 37.0 C 86 16 100/64 95 08/29/20 00:00 36.5 C 104 H 16 119/49 L 95 - Problem List Review Problem List Initiated/Reviewed/Updated: Yes - My Orders Last 24 Hours: My Active Orders 08/30/20 05:11 BASIC METABOLIC PANEL,BMP [CHEM] AM CBC WITH AUTO DIFF [HEME] AM - Plan Plan:: Assessment and Plan: 1. Vital Pneumonia vs Community-acquired pneumonia: -continue Levaquin, weaned off oxygen this morning, will monitor today and if continues to improve likely discharge home tomorrow. 3. DVT prophylaxis: - Lovenox 40 mg qd.
[2020-08-30] MEDS: Albuterol/Ipratropium 4 GM Inhalation Spray INH SCH ×3 (02:10→09:04)
[2020-08-30] MEDS: Levofloxacin/Dextrose 5%-Water 750 MG in Premix Bag 1 BAG IV SCH (04:47)
[2020-08-30 06:05] LABS: BLOOD UREA NITROGEN,BUN 12 mg/dL (7.0-18.0); CARBON DIOXIDE,CO2 23.5 mmol/L (21.0-32.0); CHLORIDE,CL 105 mmol/L (98-107); GLUCOSE RANDOM 102 mg/dL (74-106); POTASSIUM,K 3.9 mmol/L (3.5-5.1); SODIUM,NA 139 mmol/L (136-145)
[2020-08-30] MEDS: Enoxaparin 40 MG/0.4 ML Syringe SUBCUT SCH (06:44)
[2020-08-30] MEDS: Acetaminophen 325 MG Tab PO PRN (09:04)
[2020-08-30] MEDS: Pantoprazole 40 MG Tab.CR PO SCH (09:04)
--- NOTE | 2020-08-30 10:04 | PCM.DCSUM1 ---
Discharge Summary - Hospital Course Brief History: 20-year-old female presented complaining of shortness of breath and cough. She has a PMH of anxiety. Patient was discharged from the hospital on 08/25/20 for viral/atypical pneumonia. At that time she was discharged on cefdinir and azithromycin which she has been taking. She notes that since being discharged from the hospital her breathing appeared to get worse and cough did not improve over the past 2 days. She also had fevers, nausea and decreased appetite. She has been monitoring her O2 sat at home and notes that it was in the 60's which prompted her to go to the ER. She has been tested for COVID-19 and influenza multiple times and has been negative. She denies any history of asthma, COPD or frequent lung infections. She recently moved to [place]. She denies any tobacco use, illicit use and alcohol use. She has not had any headache, chest pain, vomiting, abdominal pain, diarrhea, blood in stool, blood in urine, numbness or tingling in extremities. In the ER, WBC 15, 000 and influenza/COVID-19/RSV tests were negative. CT chest showed bilateral ground- glass opacities worsened since prior imaging on 08/23/20. Patient was noted to be tachycardic which she states is normal for her. EKG showed sinus tachycardia with no acute ischemic changes. She was given IV levaquin, toradol, zofran, xopenox, decadron and IV NS bolus x3. Patient was admitted for further evaluation and treatment. Diagnosis: Stroke: No - Discharge Data Discharge Date: 08/30/20 Discharge Disposition: Home, Self-Care 01 Condition: Stable - Referral to Home Health Primary Care Physician: PCP None - Patient Summary/Data Hospital Course: Admission Diagnoses: Acute hypoxic respiratory CAP tachycardia Discharge Diagnoses: Acute hypoxic respiratory CAP tachycardia other PMH: anxiety obesity Eleni was admitted secondary to acute hypoxic respiratory failure CAP and tachycardia. She had been recently discharged home from the hospital on cefdinir and azithromycin for suspected CAP and or viral pneumonia. She reports she has been taking medications appropriately at home but noticed that she was coughing more and more short of breath along with checking her pulse oximetry at home noted to be 60% on room air. She is brought in the ER where CT showed worsening opacities bilaterally. She started on Levaquin 750 mg IV daily. She was quickly weaned off oxygen and has been satting high 90s since arrival to [facility]. Has intermittent tachycardia especially with exacerbation. Reports coughing has improved significantly. Leukocytosis has resolved. BMP stable. She will be discharged home today with Levaquin 750 mg for 4 more days. She is to continue Tessalon Perles along with albuterol inhaler. She is to stop taking cefdinir and azithromycin. She was counseled on side effects of medications and to continue with follow-up this Sunday. She was also counseled on ways to limit anxiety and urged her to discuss anxiety control with PCP on Sunday. She is to return the ER if concerns should arise sooner. - Patient Instructions Diet: Regular Diet as Tolerated Activity: No Strenuous Activities Driving: Do Not Drive Notify Provider of: Fever, Increased Pain, Swelling and Redness, Drainage, Nausea and/or Vomiting - Discharge Plan *PRESCRIPTION DRUG MONITORING PROGRAM REVIEWED*: Not Applicable *COPY OF PRESCRIPTION DRUG MONITORING REPORT IN PATIENT LICHA: Not Applicable Prescriptions/Med Rec: levoFLOXacin [Levaquin] 750 mg PO DAILY #4 tab Home Medications: Home Meds Albuterol Sulfate [Albuterol Sulfate HFA] 1 puff INH Q4H PRN #1 inhaler 08/25/20 [Rx] Benzonatate [Tessalon Perle] 100 mg PO TID PRN #30 capsule 08/25/20 [Rx] Albuterol/Ipratropium [Combivent Respimat] 0 gm INH Q4H inhaler 08/30/20 [Rx] levoFLOXacin [Levaquin] 750 mg PO DAILY #4 tab 08/30/20 [Rx] Oxygen Therapy Mode: Room Air Patient Handouts: Hypoxia, Levofloxacin tablets, Cough, Adult, Community- Acquired Pneumonia, Adult Referrals: Starla Carney NP [Nurse Practitioner] - 09/03/20 2:30 pm - Discharge Summary/Plan Comment DC Time >30 min.: No - Patient Data Vitals - Most Recent: Last Vital Signs Temp 98.8 F 08/30/20 08:00 Pulse 97 08/30/20 08:00 Resp 18 08/30/20 08:00 BP 104/88 08/30/20 08:00 Pulse Ox 97 08/30/20 09:00 Weight - Most Recent: 136.2 kg I&O - Last 24 hours: Intake & Output 08/29/20 08/30/20 08/30/20 22:59 06:59 14:59 Intake Total 1670 680 Output Total 800 890 Balance 870 -210 Lab Results - Last 24 hrs: Laboratory Results - last 24 hr 08/30/20 08/30/20 Range/Units 05:30 05:30 WBC 10.12 (4.0-11.0) K/uL RBC 5.05 (4.30-5.90) M/uL Hgb 12.7 (12.0-16.0) g/dL Hct 40.9 (36.0-46.0) % MCV 81.0 (80.0-98.0) fL MCH 25.1 L (27.0-32.0) pg MCHC 31.1 (31.0-37.0) g/dL RDW Std Deviation 44.4 (28.0-62.0) fl RDW Coeff of Maura 15 (11.0-15.0) % Plt Count 361 (150-400) K/uL MPV 10.60 (7.40-12.00) fL Neut % (Auto) 56.1 (48.0-80.0) % Lymph % (Auto) 34.2 (16.0-40.0) % [place] % (Auto) 6.9 (0.0-15.0) % Eos % (Auto) 2.3 (0.0-7.0) % Baso % (Auto) 0.5 (0.0-1.5) % Neut # (Auto) 5.7 (1.4-5.7) K/uL Lymph # (Auto) 3.5 H (0.6-2.4) K/uL [place] # (Auto) 0.7 (0.0-0.8) K/uL Eos # (Auto) 0.2 (0.0-0.7) K/uL Baso # (Auto) 0.1 (0.0-0.1) K/uL Nucleated RBC % 0.0 /100WBC Nucleated RBCs # 0 K/uL Sodium 139 (136-145) mmol/L Potassium 3.9 (3.5-5.1) mmol/L Chloride 105 (98-107) mmol/L Carbon Dioxide 23.5 (21.0-32.0) mmol/L BUN 12 (7.0-18.0) mg/dL Creatinine 0.8 (0.6-1.0) mg/dL Est Cr Clr Drug Dosing 112.66 mL/min Estimated GFR (MDRD) > 60.0 ml/min Glucose 102 (74-106) mg/dL Calcium 8.8 (8.5-10.1) mg/dL ZHANG Results - Last 24 hrs: Microbiology 08/28/20 05:13 Aerobic Blood Culture - Preliminary Blood - Venous - Lab Draw NO GROWTH AFTER 2 DAYS Anaerobic Blood Culture - Preliminary NO GROWTH AFTER 2 DAYS 08/28/20 05:03 Aerobic Blood Culture - Preliminary Blood - Venous NO GROWTH AFTER 2 DAYS Anaerobic Blood Culture - Preliminary NO GROWTH AFTER 2 DAYS Med Orders - Current: Current Medications Acetaminophen (Tylenol) 650 mg PO Q4H PRN PRN Reason: Pain (Mild 1-3)/fever Last Admin: 08/30/20 09:04 Dose: 650 mg Documented by: Albuterol/Ipratropium (Combivent Respimat) 0 gm INH Q4H [facility] Last Admin: 08/30/20 09:04 Dose: 1 puff Documented by: Benzonatate (Tessalon Perles) 100 mg PO TID PRN PRN Reason: Cough Last Admin: 08/28/20 17:29 Dose: 100 mg Documented by: Enoxaparin Sodium (Lovenox) 40 mg SUBCUT Q24H [facility] Last Admin: 08/30/20 06:44 Dose: 40 mg Documented by: Sodium Chloride (Normal Saline) 500 mls @ 999 mls/hr IV .BOLUS [facility] Last Admin: 08/28/20 10:05 Dose: 999 mls/hr Documented by: Levofloxacin/Dextrose 750 mg/ (Premix) 150 mls @ 100 mls/hr IV Q24H [facility] Last Admin: 08/30/20 04:47 Dose: 100 mls/hr Documented by: Ondansetron HCl (Zofran) 4 mg IVPUSH Q4H PRN PRN Reason: Nausea Pantoprazole Sodium (Protonix) 40 mg PO DAILY [facility] Last Admin: 08/30/20 09:04 Dose: 40 mg Documented by: Sodium Chloride (Saline Flush) 10 ml FLUSH ASDIRECTED PRN PRN Reason: Keep Vein Open Last Admin: 08/28/20 02:54 Dose: 10 ml Documented by: Sodium Chloride (Saline Flush) 2.5 ml FLUSH ASDIRECTED PRN PRN Reason: Keep Vein Open Last Admin: 08/28/20 11:02 Dose: 2.5 ml Documented by: Discontinued Medications Albuterol/Ipratropium (Duoneb 3.0-0.5 Mg/3 Ml) 3 ml NEB ONETIME ONE Stop: 08/28/20 02:04 Last Admin: 08/28/20 02:55 Dose: Not Given Documented by: Albuterol/Ipratropium (Combivent Respimat) 0 gm INH Q4H [facility] Last Admin: 08/28/20 11:01 Dose: Not Given Documented by: Dexamethasone (Decadron) 10 mg IVPUSH ONETIME ONE Stop: 08/28/20 02:04 Last Admin: 08/28/20 02:54 Dose: 10 mg Documented by: Sodium Chloride (Normal Saline) 1,000 mls @ 999 mls/hr IV .Bolus ONE Stop: 08/28/20 03:03 Last Admin: 08/28/20 02:53 Dose: 999 mls/hr Documented by: Levofloxacin/Dextrose 750 mg/ (Premix) 150 mls @ 100 mls/hr IV ONETIME ONE Stop: 08/28/20 06:20 Last Admin: 08/28/20 05:29 Dose: 100 mls/hr Documented by: Sodium Chloride (Normal Saline) 1,000 mls @ 999 mls/hr IV .Bolus ONE Stop: 08/28/20 06:02 Last Admin: 08/28/20 05:31 Dose: 999 mls/hr Documented by: Levofloxacin/Dextrose 750 mg/ (Premix) 150 mls @ 100 mls/hr IV Q24H [facility] Last Admin: 08/28/20 11:01 Dose: Not Given Documented by: Iopamidol (Isovue Multipack-370 (76%)) 100 ml IVPUSH ONETIME STA Stop: 08/28/20 04:09 Last Admin: 08/28/20 04:09 Dose: 100 ml Documented by: Ketorolac Tromethamine (Toradol) 15 mg IVPUSH ONETIME ONE Stop: 08/28/20 02:04 Last Admin: 08/28/20 02:53 Dose: 15 mg Documented by: Levalbuterol HCl (Xopenex) Confirm Administered Dose 1.25 mg .ROUTE .STK-MED ONE Stop: 08/28/20 02:33 Last Admin: 08/28/20 02:56 Dose: Not Given Documented by: Ondansetron HCl (Zofran) 4 mg IVPUSH ONETIME ONE Stop: 08/28/20 02:04 Last Admin: 08/28/20 02:54 Dose: 4 mg Documented by: - Exam Quality Assessment: Denies: Supplemental Oxygen General: Reports: Alert, Oriented, Cooperative, No Acute Distress Lungs: Reports: Normal Respiratory Effort, Decreased Breath Sounds (Bibasilar), Other (Mild intermittent dry cough.) Cardiovascular: Reports: Regular Rate, Regular Rhythm Extremities: Normal Inspection, Normal Range of Motion Neurological: Reports: No New Focal Deficit Psy/Mental Status: Reports: Alert, Normal Affect, Normal Mood
== END 2020-08-30 11:20 | disposition home or self-care (01) | DRG 193 ==
LOC: MW.ED 01:35 → MW.MS 05:00
PROVIDERS: ADMIT Internal Medicine; ATTEND Internal Medicine
DX: J18.9 Pneumonia, unspecified organism (principal); J96.01 Acute respiratory failure with hypoxia; Z68.42 Body mass index [BMI] 45.0-49.9, adult; R00.0 Tachycardia, unspecified; F41.9 Anxiety disorder, unspecified; Z79.899 Other long term (current) drug therapy; Z88.5 Allergy status to narcotic agent; Z90.89 Acquired absence of other organs; Z90.49 Acquired absence of other specified parts of digestive tract; Z20.822 Contact with and (suspected) exposure to COVID-19; E66.9 Obesity, unspecified; J12.9 Viral pneumonia, unspecified
CPT/HCPCS: 0241U; 36415; 36600; 71260; 71260-26; 80048; 80053; 82803; 83880; 84484; 85025; 87040; 94640; 94667; 94668; 96374; 96375; 99285-25; 99291; A9270-GY; J1100; J1650; J1885; J1956; J2405; J7030; J7040; Q9967